=== PATIENT | female | born 1935 | race Caucasian/White ===

== ENCOUNTER 2019-07-17 13:15 | Inpatient (IN) | payer MEDICARE, OTHER ==
[2019-07-17] MEDS ORDERED: HYDROcodone/Acetaminophen 5/325 mg Tablet PO PRN (13:18)
[2019-07-17] MEDS ORDERED: Ondansetron PF 4 MG/2 ML Vial IVP PRN (13:18)
[2019-07-17] MEDS ORDERED: hydrALAZINE 20 MG/ML VIAL ONE (13:28)
[2019-07-17] MEDS ORDERED: Labetalol HCl 100 MG/20 ML VIAL SLOW IVP PRN (13:30)
[2019-07-17] MEDS ORDERED: HYDROcodone/Acetaminophen 7.5/325 mg Tablet PO PRN (13:33)
[2019-07-17] MEDS: hydrALAZINE 20 MG/ML VIAL SLOW IVP PRN ×2 (13:50→16:47)
[2019-07-17] MEDS: Sodium Chloride 0.9% 1,000 ML IV SCH (14:15)
[2019-07-17] MEDS: Acetaminophen 325 MG TAB PO PRN ×2 (14:18→20:28)
[2019-07-17 16:50] VITALS: BP 152/67
[2019-07-17] MEDS ORDERED: Sodium Chloride 0.9% (PF) 10 ML VIAL FS PRN (18:52)
[2019-07-17] MEDS ORDERED: Pantoprazole 40 MG VIAL IVP SCH (19:00)
[2019-07-17] MEDS ORDERED: Dextrose 50% Abboject 50 ML SYRINGE IVP PRN (20:14)
[2019-07-17] MEDS ORDERED: Dextrose 5% in Water 1,000 ML IV PRN (20:14)
[2019-07-17] MEDS: HumaLOG 300 UNITS/3 ML VIAL SC PRN (20:31)
--- NOTE | 2019-07-17 21:43 | HP ---
CHIEF COMPLAINT: Closed head injury, left frontal hematoma. HISTORY OF PRESENT ILLNESS: Ms. Dunne is a pleasant 84-year-old female, who was transferred from [facility] ER for left parietal intraparenchymal hemorrhage and right occipital intraparenchymal hemorrhage. The patient states that last night while she was in bed, she dropped something onto the ground and when she leaned over to pick it up, she hit the left side of her forehead on her bedside table. She did not initially present for medical evaluation; however, she decided to go to the ER today due to her son's concern for development of left frontal hematoma. The patient does report mild headache, but otherwise, denies any current complaints. She denies any confusion, vision changes, nausea, vomiting, shortness of breath, or chest pain. She was transferred to [facility] in [place] for higher level of care and CCU neurologic monitoring. Of note, her blood pressure is elevated, and she reports hypertension at baseline, for which, she regularly takes antihypertensive medication. She is unable to state exactly what medication she is on, however, her son has a list that he can provide. The patient is on 81 mg of aspirin as well as Plavix since she had cardiac stents placed earlier this year. PHYSICAL EXAMINATION: GENERAL: The patient is awake, alert, and appropriate. She is alert and oriented x3. NEURO: She is able to state her full name, the correct date, and states that she is currently in a hospital in [place], [place]. GCS is 15. Cranial nerves 2 through 12 are intact. Pupils are equal, round, and reactive to light. Extraocular movements are intact. Note that, the patient does have a large left frontal hematoma as well as periorbital edema that partially occludes her visual lam. No tongue fasciculation. No pronator drift. The patient has excellent strength throughout her upper and lower extremity myotomes bilaterally. Sensation to light touch is intact and equal bilaterally. Gait was not assessed. IMPRESSION/DIAGNOSES: 1. Multiple intracranial hemorrhages, including left parietal intraparenchymal hemorrhage and right occipital intraparenchymal hemorrhage. 2. History of hypertension, currently with elevated blood pressure. 3. History of coronary artery disease with stent placement, on 81 mg of aspirin and 75 mg of Plavix. PLAN: At this time, I have reviewed patient's case and imaging with Dr. Adams. No emergent neurosurgical intervention is necessary at this time. The patient's neurologic examination is very reassuring; however, the patient is admitted to critical care unit for hourly neuro checks. We will hold her aspirin and Plavix. Head of bed at 30 degrees. The patient is okay to have a clear liquid diet at this time. She will be on bed rest. Plan at this time is to repeat CT of the brain without contrast tomorrow morning. The patient's blood pressure at time of my initial evaluation was 225/85. I have ordered hydralazine and labetalol to be given as needed for systolic blood pressure greater than 140s with diastolic blood pressure greater than 90s. We will also order patient's home antihypertensives during her hospital stay. I consulted our medical colleagues for additional help with medical management and blood pressure control. We will see patient tomorrow morning for followup, or sooner if called regarding any neurologic changes. This was a 50- minute initial patient encounter, in which greater than 50% of the time was spent in counseling. The remaining time was spent in review of imaging, records, evaluation of the patient, examination, and formulation of a plan. Job ID: [id number]
--- NOTE | 2019-07-17 23:30 | PDOC.HHP ---
Hospitalist HPI - History of Present Illness History of Present Illness: Consultation: Medical management Referral source: Dr. Adams, neurosurgery team Ms. Dunne is an 84 y/o lady with PMH of parkinson's disease, HTN, who was transfered from [facility] in [place] after CT finding of left parietal hemorrhage and right occipital hemorrhage. Majority of the history obtained form the chart, as patient was asleep during consultation. Apparently, she had a fall out of her bed and hit her head on a bedside table and devleoped a frontal hematoma. The son was concerned because she is on blood thinners and took her to the emergency department. Medicine has been consutled by neurosurgical team for further management. Apparently, she is on Plavix and Aspirin for a stent which she had placed earlier this year. The vessel and exact date is unknown. She has history of parkinson's disease and is on levodopa therpay. She has history of diabetes and is insulin dependent. Hospitalist ROS - Review of Systems Constitutional: denies: fever, chills, sweats, weakness, malaise, other Eyes: denies: pain, vision change, conjunctivae inflammation, eyelid inflammation, redness, other ENT: denies: ear pain, ear discharge, nose pain, nose discharge, nose congestion , mouth pain, mouth swelling, throat pain, throat swelling, other Respiratory: denies: cough, dry, shortness of breath, hemoptysis, SOB with excertion, pleuritic pain, sputum, wheezing, other Cardiovascular: denies: chest pain, palpitations, orthopnea, paroxysmal noc. dyspnea, edema, light headedness, other Gastrointestinal: denies: nausea, vomiting, abdominal pain, diarrhea, constipation, melena, hematochezia, other Genitourinary: denies: dysuria, frequency, incontinence, hematuria, retention, other Musculoskeletal: denies: neck pain, shoulder pain, arm pain, back pain, hand pain, leg pain, foot pain, other Skin: denies: rash, lesions, susie, bruising, other Neurological: denies: weakness, numbness, incoordination, change in speech, confusion, seizures, other - Medication Medications: Active Medications Generic Name Dose Route Start Last Admin Trade Name Freq PRN Reason Stop Dose Admin Acetaminophen 650 mg 07/17/19 13:18 07/17/19 20:28 Tylenol PO 650 mg Q4H PRN Administration Headache/Fever/Mild Pain (1-3) Hydralazine HCl 10 mg 07/17/19 13:29 07/17/19 16:47 Apresoline SLOW IVP 10 mg Q15MIN PRN Administration SBP greater than 140 Sodium Chloride 1,000 mls @ 75 mls/hr 07/17/19 13:30 07/17/19 14:15 Normal Saline 0.9% IV 1,000 mls .[id number] MONSE Administration Insulin Human Lispro 0 units 07/17/19 20:14 07/17/19 20:31 Humalog SC 5 unit .MILD SLIDING SCALE PRN Administration MILD SLIDING SCALE Protocol Medication Instructions Recorded Confirmed Type Aspirin [Aspir-Low] 81 mg PO DAILY 07/17/19 07/17/19 History Rick/D3/Mag11/Zinc/School [employer]eter[employer] Cook/Samuel/Bor 1 tablet PO BID- 07/17/19 07/17/19 History [Caltrate 600 D Plus Minerals] Carbidopa/Levodopa 1 tab PO QID 07/17/19 07/17/19 History [Carbidopa-Levodopa 25-100 Tab] Carvedilol [Coreg] 3.125 mg PO BID 07/17/19 07/17/19 History Cholecalciferol (Vitamin D3) 5,000 unit PO DAILY 07/17/19 07/17/19 History [Vitamin D3] Clopidogrel Bisulfate [Plavix] 75 mg PO DAILY 07/17/19 07/17/19 History Fenofibrate Nanocrystallized 145 mg PO HS 07/17/19 07/17/19 History [Tricor] Icosapent Ethyl [Vascepa] 2 gm PO BID-WM 07/17/19 07/17/19 History Insulin Lispro Protamin/Lispro 0 unit SC BID-AC 07/17/19 07/17/19 History [HumaLOG Mix 75/25 KwikPen] Levothyroxine Sodium [Synthroid] 75 mcg PO DAILY 07/17/19 07/17/19 History Memantine HCl [Namenda] 10 mg PO BID 07/17/19 07/17/19 History Multivitamin/Iron/Folic Acid 1 each PO DAILY 07/17/19 07/17/19 History [Centrum Adults Tablet] Omeprazole 40 mg PO MWF 07/17/19 07/17/19 History Polyethylene Glycol 3350 [Miralax] 17 gm PO DAILY 07/17/19 07/17/19 History Rosuvastatin [Crestor] 5 mg PO HS 07/17/19 07/17/19 History rOPINIRole HCl [Ropinirole HCl] 1 mg PO HS 07/17/19 07/17/19 History Hospitalist History - Past Medical History Cardiac: reports: CAD Pulmonary: reports: no pertinent history TRAIN CALLER: reports: Other (Parkinson's) Gastrointestinal: reports: no pertinent history Heme/Onc: reports: no pertinent history Hepatobiliary: reports: no pertinent history Psych: reports: no pertinent history Musculoskeletal: reports: no pertinent history Rheumatologic: reports: no pertinent history Infectious Disease: reports: no pertinent history ENT: reports: no pertinent history Renal/: reports: no pertinent history Endocrine: reports: Diabetes Dermatology: reports: no pertinent history - Past Surgical History Past Surgical History: reports: no pertinent history - Family History Family History: reports: no pertinent history - Social History Alcohol: reports: None Drugs: reports: none Living Situation: With Family - Exam General Appearance: NAD, awake alert Eye: PERRL, anicteric sclera ENT: no oropharyngeal lesions, moist mucosa ENT - other findings: left frontal hematoma noted Neck: supple, symmetric, no JVD, no thyromegaly, no lymphadenopathy, no carotid bruit Heart: RRR, no murmur, no gallops, no rubs, normal peripheral pulses Respiratory: CTAB, no wheezes, no rales, no ronchi, normal chest expansion, no tachypnea, normal percussion Gastrointestinal: soft, non-tender, non-distended, normal bowel sounds, no palpable masses, no hepatomegaly, no splenomegaly, no bruit Extremities: no cyanosis, no clubbing, no edema Skin: normal turgor, no lesions, no rashes Neurological: cranial nerve grossly intact, normal sensation to touch, no weakness, no focal deficits, no new deficit Musculoskeletal: normal tone, normal strength, no muscle wasting Psychiatric: normal affect, normal behavior, A&O x 3 Hospitalist Results - Labs Additional comment: Labs reviewed in the chart, WBC count of 9.1, RBC 4.21, HGB 12.0, HCT 37.2, Platelet 304 CT brain reviewed in the chart, IMPRESSION: left temporal lobe and small amount of intraventricular hemorrhage - Radiology Interpretation CT scan - head Status: report reviewed by me Hospitalist H&P A/P - Problem (1) Intraparenchymal hematoma of brain Code(s): S06.360A - TRAUM HEMOR CEREB, W/O LOSS OF CONSCIOUSNESS, INIT Status : Acute (2) Parkinsons disease Code(s): G20 - PARKINSON'S DISEASE Status: Acute (3) Coronary artery disease Code(s): I25.10 - ATHSCL HEART DISEASE OF [place] CORONARY ARTERY W/O ANG PCTRS Status: Acute (4) Hypothyroidism Code(s): E03.9 - HYPOTHYROIDISM, UNSPECIFIED Status: Acute (5) Hypertension Code(s): I10 - ESSENTIAL (PRIMARY) HYPERTENSION Status: Acute (6) Type 2 diabetes mellitus Status: Acute - Plan Plan: Medication reconciled, continue parkinson medication and anti-hypertensive medication. Goal BP around 140mmHg systolic for ICH. Resume sliding scale for diabetes management at this time Hold plavix and aspirin, will need outside records or contact mineral technologist date of stent and follow up moving forwards Resume medication for hypothyroidism Thank you for this consultation. We will continue to follow along with you. Will follow diabetes and blood sugar while in the hospital.
[2019-07-18] MEDS: Sodium Chloride 0.9% 1,000 ML IV SCH ×2 (02:38→17:18)
[2019-07-18 05:40] LABS: #Basophils 0.2 thou/uL (0.0-0.2); #Eosinphils 0.3 thou/uL (0.0-0.7); #Lymphocytes 3.2 thou/uL (1.20-3.40); #Monocytes 0.9 thou/uL (0.11-0.59); #Neutrophils 3.6 thou/uL (1.40-6.50); %Basophils 2.4 % (0.0-1.0); %Eosinophils 3.3 % (0.0-10.0); %Lymphocytes 39.2 % (21.0-51.0); %Monocytes 10.9 % (0.0-10.0); %Neutrophils 44.2 % (42.0-75.0); Hemoglobin 11.2 g/dL (12.0-16.0); Mean Corpuscular HGB CONC 32.9 g/dL (32.0-36.0); Mean Corpuscular Hemoglobin 28.8 pg (27.0-31.0); Mean Corpuscular Volume 87.6 fL (78.0-98.0); Mean Platelet Volume 7.7 fL (7.4-10.4); Platelet Count 268 thou/uL (130-400); RBC Distribution Width 12.2 % (11.5-14.5); Red Blood Cell (RBC) Count 3.88 mill/uL (4.20-5.40); White Blood Cell (WBC) Count 8.1 thou/uL (4.8-10.8)
[2019-07-18 06:05] LABS: Anion Gap 12 mmol/L (10-20); BUN (Urea Nitrogen) 15 mg/dL (9.8-20.1); Calc. Creatinine Clearance 33 mL/min (70-130); Calcium 9.2 mg/dL (7.8-10.44); Carbon Dioxide 26 mmol/L (23-31); Chloride 108 mmol/L (98-107); Estimated GFR-MDRD 58; Glucose 152 mg/dL (83-110); Sodium 142 mmol/L (136-145)
[2019-07-18] MEDS: HumaLOG 300 UNITS/3 ML VIAL SC PRN ×3 (06:28→20:46)
[2019-07-18] MEDS: Levothyroxine Sodium 75 MCG TAB PO SCH (06:28)
[2019-07-18] MEDS: hydrALAZINE 20 MG/ML VIAL SLOW IVP PRN ×2 (06:32→13:38)
--- NOTE | 2019-07-18 07:39 | CT ---
PRELIMINARY REPORT/[facility]/EMERGENCY AFTER HOURS PROCEDURE Receipt of this report by the clinical staff was confirmed with Ana Laura Brewer RN by Anish Tyler on Jul 18, 2019 06:31:00 PALLIATIVE CARE NURSE. Addendum electronically signed by Fern Tyler on July 18, 2019 6:32:09 AM PALLIATIVE CARE NURSE EXAM: CT Head Without Intravenous Contrast. CLINICAL HISTORY: PREVIOUS IMAGES SENT FROM [facility]. F/U BLEED FROM RECENT FALL TECHNIQUE: Axial computed tomography images of the head/brain without intravenous contrast. COMPARISON: CT\SR - CT-HEAD WO CONTRAST - 07/17/2019 10:27 AM PALLIATIVE CARE NURSE FINDINGS: BRAIN: A hyperdense well-circumscribed 11 x 23 mm oval area of acute bleed with the millimeter or so border of edema is present in the left medial temporal lobe as seen on yesterday's exam, slightly effacing t he ipsilateral cistern No herniation In the right occipital cortex near the midline is a similar, to perhaps slightly less dense 12 x 16 m m area of hemorrhage adjacent to the calvarium and falx, similarly not causing significant mass effec t. Subsequently obtained coronal reformats clearly show this as not of a different age, but is different density is because it is a gyriform enhancement indicating an acute cortical hemorrhage, the effect of different density was volume averaging on the axials. This shows the need for multiaxial reformats in any acute brain scan. There is a punctate paramedian right frontal 4 mm area of subcortical acute hemorrhage Forhead hematoma present VENTRICLES: There is a tiny level of acute blood in the left posterior, lateral ventricle as seen yesterday Generalized symmetrical lateral ventriculomegaly. ORBITS: The orbits are unremarkable. SINUSES AND MASTOIDS: The paranasal sinuses and mastoid air cells are clear. SOFT TISSUES: No significant facial or scalp soft tissue swelling evident. No radiopaque foreign body is seen. BONES: No fracture MISCELLANEOUS: There is considerable delay in the report; we multiply requested coronal and sagittal reformats given the acute bleed, and have requested prior study which is apparently unavailable; Subsequently I have discussed the case with Nidhi about 30 minutes prior to final dictation; she s tates the patient does not have acute neurologic symptoms but does have Parkinson's; she has obtained a report which we will eventually acquire but apparently mentions only a solitary bleed on the left medial temporal lobe with a bit of intraventricular blood. IMPRESSION: 1. There are interval punctate subcortical scattered hemorrhages in this patient which we admittedly see only on reformats which we have subsequently requested. These may have developed in the interval, but as discussed above these most interval finding since yesterday are only really apparent on the r eformats. 2. Further neurologic and medical consultation is recommended. Report was prioritized for final dicta tion 6:14 AM PALLIATIVE CARE NURSE ELECTRONICALLY SIGNED BY: Gurjit Hooks M.D. Jul 18, 2019 6:14:51 AM PALLIATIVE CARE NURSE FINAL REPORT EMERGENT AFTER HOURS CT OF THE BRAIN WITHOUT CONTRAST: FINDINGS/IMPRESSION: I agree with the findings and impression given in the preliminary report per [facility] physici an. There is a stable hemorrhage in the left medial temporal lobe. The punctate hyperdensities ment ioned in the preliminary report are likely artifactual.
[2019-07-18] MEDS: Carvedilol 3.125 MG TAB PO SCH ×2 (08:19→20:40)
[2019-07-18] MEDS: Carbidopa/Levodopa 25-100 mg Tablet PO SCH ×4 (08:19→20:40)
[2019-07-18] MEDS: Pantoprazole 40 MG VIAL IVP SCH (08:20)
[2019-07-18] MEDS: Polyethylene Glycol 3350 17 GM Packet PO SCH (08:20)
--- NOTE | 2019-07-18 10:00 | CON ---
DATE OF CONSULTATION: 07/18/2019 This encompassed 50 minutes time, of that time, greater than 50% spent with the patient and/or the patient's unit in the hospital. REASON FOR CONSULTATION: ICU management. HISTORY OF PRESENT ILLNESS: This is an 84-year-old female, who presented to the [facility] Emergency Room yesterday after falling. She sustained a bruise to the left parietotemporal region. She has a deep intracranial hemorrhage. So far, she has had no sequela from that and she is being watched closely in the CCU. PAST MEDICAL HISTORY: 1. Cyr palsy. 2. Diabetes mellitus. 3. Coronary artery disease. 4. Hypertension. 5. Nephrolithiasis. 6. Myocardial infarction. 7. Parkinson disease. PAST SURGICAL HISTORY: 1. Hysterectomy. 2. Tonsillectomy. 3. Appendectomy. 4. Cardiac catheterization. 5. Bladder suspension. 6. Cataract surgery. 7. Right colon resection. MEDICATIONS: Prior to admission; 1. Aspirin 81 mg daily. 2. Carbidopa/levodopa 25/100 daily. 3. Crestor 5 mg daily. 4. Carvedilol 3.125 mg b.i.d. 5. Synthroid 75 mcg daily. 6. Humalog insulin. 7. Memantine 10 mg daily. 8. Plavix 75 mg daily. 9. Tricor 145 mg daily. 10. Vascepa 1 g daily. ALLERGIES: NONE. SOCIAL HISTORY: Never smoked. Does not consume alcohol. IMMUNIZATION STATUS: Not known. REVIEW OF SYSTEMS: Twelve-point review of systems is otherwise negative. PHYSICAL EXAMINATION: VITAL SIGNS: Temperature 98.5, pulse 67, blood pressure 130/41, and O2 saturation 99%. GENERAL: She is awake, alert, in no distress. HEENT: Remarkable for a quarter-sized bruise in the frontal region of her head. Pupils are reactive. Sclerae are anicteric. Tongue protrudes midline. NECK: No adenopathy or JVD. CARDIAC: S1 and S2, regular. There is 3/6 holosystolic harsh murmur. LUNGS: Clear. ABDOMEN: Soft and nontender. EXTREMITIES: No clubbing, cyanosis, or edema. NEUROLOGIC: She has a resting parkinsonian tremor. LABORATORY DATA: Sodium 142, potassium 4, chloride 108, CO2 of 26, BUN 15, creatinine 0.9, glucose 152. White blood cell count 8.1, hematocrit 34.0, and platelet count 268. Head CT was reviewed. ASSESSMENT: 1. Status post brain hemorrhage - traumatic. 2. Parkinson disease. 3. Diabetes mellitus. 4. History of coronary artery disease. 5. Harsh systolic heart murmur. PLAN: 1. Check echocardiogram to rule out critical aortic stenosis, especially given recent fall. 2. Medical problems being managed by the hospitalist group. 3. Transfer to floor when okay with Neurosurgery. Job ID: [id number]
--- NOTE | 2019-07-18 12:35 | PRG ---
DATE OF SERVICE: 07/18/2019 A 30-minute initial visit note, in which 30 minutes were spent reviewing the imaging record, evaluation, examination of the patient, and formulation of plan. Greater than 50% time was spent in counseling on Dariana Dunne. Ms. Dunne is an 84-year-old woman. She fell and sustained a coup and contrecoup injury including a frontal pole contusion, left temporal medial contusion, and a right occipital contusion. Head CT this morning is stable. She is neurologically intact and appears to be doing quite well. Our medical colleagues are working up syncopal spells. I am going to sign off. She can be transferred to the floor whenever deemed appropriate by our medical team. I will repeat a head CT in 1 month. She should be off antiplatelet and anticoagulant medication during that time. DIAGNOSIS: Cerebral contusion. Job ID: [id number]
--- NOTE | 2019-07-18 15:57 | PDOC.HOSPP ---
- Subjective Encounter Date: 07/18/19 Encounter Time: 11:54 Subjective: 84 y/o female with CAD on ASA and plavix, HTN, parkinson, DM and prior right sided bells palsy admitted for treatment of bilateral intracranial bleed after accidentaly hitting her head onto a lamp stand during a fall. feeling normal. No headache on new deficit. - Objective Vital Signs & Weight: Vital Signs (12 hours) Temp Pulse BP 07/18/19 13:38 79 152/67 H 07/18/19 08:00 98.1 F 07/18/19 06:32 79 152/67 H 07/18/19 04:00 98.5 F Weight Weight 102 lb 8.239 oz Most Recent Monitor Data Heart Rate from ECG 67 NIBP 135/55 NIBP BP-Mean 81 Respiration from ECG 15 SpO2 98 I&O: 07/17/19 07/18/19 07/19/19 06:59 06:59 06:59 Intake Total 1923 Output Total 1725 Balance 198 Result Diagrams: 07/18/19 05:33 07/18/19 05:33 Additional Labs: Accuchecks 07/18/19 07/17/19 10:54 20:34 POC Glucose 320 H 323 H Hospitalist ROS - Medication Medications: Active Medications Generic Name Dose Route Start Last Admin Trade Name Freq PRN Reason Stop Dose Admin Acetaminophen 650 mg 07/17/19 13:18 07/17/19 20:28 Tylenol PO 650 mg Q4H PRN Administration Headache/Fever/Mild Pain (1-3) Carbidopa/Levodopa 1 tab 07/18/19 09:00 07/18/19 13:38 Sinemet 25-100 PO 1 tab QID MONSE Administration Carvedilol 3.125 mg 07/18/19 09:00 07/18/19 08:19 Coreg PO 3.125 mg BID MONSE Administration Hydralazine HCl 10 mg 07/17/19 13:29 07/18/19 13:38 Apresoline SLOW IVP 10 mg Q15MIN PRN Administration SBP greater than 140 Sodium Chloride 1,000 mls @ 75 mls/hr 07/17/19 13:30 07/18/19 02:38 Normal Saline 0.9% IV 1,000 mls .[id number] MONSE Administration Insulin Human Lispro 0 units 07/17/19 20:14 07/18/19 11:04 Humalog SC 5 unit .MILD SLIDING SCALE PRN Administration MILD SLIDING SCALE Protocol Levothyroxine Sodium 75 mcg 07/18/19 06:00 07/18/19 06:28 Synthroid PO 75 mcg 0600 MONSE Administration Memantine 10 mg 07/18/19 09:00 07/18/19 08:19 Namenda PO 10 mg BID MONSE Administration Pantoprazole Sodium 40 mg 07/18/19 09:00 07/18/19 08:20 Protonix IVP 40 mg DAILY MONSE Administration Polyethylene Glycol 17 gm 07/18/19 09:00 07/18/19 08:20 Miralax PO Not Given DAILY MONSE - Exam General Appearance: awake alert Eye: anicteric sclera ENT - other findings: normocephalic. left frontal resolving hematoma noted. mild R facial droop Neck: symmetric, no JVD Heart: murmur present Respiratory: no wheezes, no ronchi, normal chest expansion, no tachypnea Gastrointestinal: soft, non-tender, non-distended, normal bowel sounds Extremities: no cyanosis, no edema Neurological: no new deficit Psychiatric: A&O x 3 Hosp A/P (1) Coronary artery disease Code(s): I25.10 - ATHSCL HEART DISEASE OF [place] CORONARY ARTERY W/O ANG PCTRS Status: Acute (2) Hypertension Code(s): I10 - ESSENTIAL (PRIMARY) HYPERTENSION Status: Acute (3) Hypothyroidism Code(s): E03.9 - HYPOTHYROIDISM, UNSPECIFIED Status: Acute (4) Intraparenchymal hematoma of brain Code(s): S06.360A - TRAUM HEMOR CEREB, W/O LOSS OF CONSCIOUSNESS, INIT Status : Acute (5) Parkinsons disease Code(s): G20 - PARKINSON'S DISEASE Status: Acute (6) Type 2 diabetes mellitus Status: Acute (7) Heart murmur Code(s): R01.1 - CARDIAC MURMUR, UNSPECIFIED Status: Acute - Plan Alexys nue neurochecks Follow Echo Continue glucemic management. Continue current antihypertensives Off antiplatelets
[2019-07-18] MEDS ORDERED: rOPINIRole HCl 1 MG TAB PO SCH (21:00)
[2019-07-18] MEDS ORDERED: Rosuvastatin 5 MG TAB PO SCH (21:00)
[2019-07-19] MEDS: HumaLOG 300 UNITS/3 ML VIAL SC PRN (05:54)
[2019-07-19] MEDS: Levothyroxine Sodium 75 MCG TAB PO SCH (05:54)
[2019-07-19 07:11] VITALS: TEMP 97.8
[2019-07-19] MEDS: Carbidopa/Levodopa 25-100 mg Tablet PO SCH ×2 (07:51→12:24)
[2019-07-19] MEDS: Carvedilol 3.125 MG TAB PO SCH (07:51)
[2019-07-19] MEDS: Polyethylene Glycol 3350 17 GM Packet PO SCH (07:51)
[2019-07-19] MEDS: Pantoprazole 40 MG VIAL IVP SCH (07:52)
--- NOTE | 2019-07-19 08:06 | PRG ---
DATE OF SERVICE: 07/19/2019 SUBJECTIVE: The patient is doing reasonably well. She has had no adverse events overnight. She has no complaints at the current time. Her echo showed mild aortic stenosis. OBJECTIVE: VITAL SIGNS: Temperature 97.8, pulse 82, blood pressure 176/80, O2 saturation 96%. HEENT: Remarkable for a small bruise over the left frontotemporal area. NECK: No JVD. CHEST: Clear. CARDIAC: S1, S2. Regular. ABDOMEN: Soft and nontender. EXTREMITIES: She has a parkinsonian tremor. LABORATORY DATA: No new labs were obtained today. ASSESSMENT: 1. Status post traumatic brain injury from a fall. 2. Mild aortic stenosis. 3. Parkinson disease. 4. Diabetes mellitus. PLAN: From my standpoint, she can be transferred out to the floor. She has no acute pulmonary concerns. At some point in the future, she may need to be evaluated by Cardiology as an outpatient for aortic stenosis. No further recommendations. I will sign off. Job ID: [id number]
--- NOTE | 2019-07-19 12:48 | PDOC.HOSPP ---
- Subjective Encounter Date: 07/19/19 Encounter Time: 12:47 Subjective: 84 y/o female with CAD on ASA and plavix, HTN, parkinson, DM and prior right sided bells palsy admitted for treatment of bilateral intracranial bleed/ contusion after accidentally hitting her head onto a lamp stand during a fall. No headache on new deficit. - Objective Vital Signs & Weight: Vital Signs (12 hours) Temp Pulse Ox 07/19/19 07:00 97.8 F 96 07/19/19 04:00 98.1 F Weight Weight 102 lb 8.239 oz Most Recent Monitor Data Heart Rate from ECG 84 NIBP 167/81 NIBP BP-Mean 109 Respiration from ECG 23 SpO2 97 I&O: 07/18/19 07/19/19 07/20/19 06:59 06:59 06:59 Intake Total 1923 1419 400 Output Total 1725 2000 350 Balance 198 -581 50 Result Diagrams: 07/18/19 05:33 07/18/19 05:33 Additional Labs: Accuchecks 07/19/19 07/18/19 07/18/19 05:57 20:48 16:26 POC Glucose 164 H 308 H 125 H Hospitalist ROS - Medication Medications: Active Medications Generic Name Dose Route Start Last Admin Trade Name Freq PRN Reason Stop Dose Admin Acetaminophen 650 mg 07/17/19 13:18 07/17/19 20:28 Tylenol PO 650 mg Q4H PRN Administration Headache/Fever/Mild Pain (1-3) Carbidopa/Levodopa 1 tab 07/18/19 09:00 07/19/19 12:24 Sinemet 25-100 PO 1 tab QID MONSE Administration Carvedilol 3.125 mg 07/18/19 09:00 07/19/19 07:51 Coreg PO 3.125 mg BID MONSE Administration Hydralazine HCl 10 mg 07/17/19 13:29 07/18/19 13:38 Apresoline SLOW IVP 10 mg Q15MIN PRN Administration SBP greater than 140 Insulin Human Lispro 0 units 07/18/19 16:03 07/19/19 05:54 Humalog SC 2 unit .MODERATE SLIDING SC PRN Administration Moderate Correctional Scale Levothyroxine Sodium 75 mcg 07/18/19 06:00 07/19/19 05:54 Synthroid PO 75 mcg 0600 MONSE Administration Memantine 10 mg 07/18/19 09:00 07/19/19 07:51 Namenda PO 10 mg BID MONSE Administration Polyethylene Glycol 17 gm 07/18/19 09:00 07/19/19 07:51 Miralax PO 17 gm DAILY MONSE Administration Ropinirole HCl 1 mg 07/18/19 21:00 07/18/19 21:30 Requip PO 1 mg HS MONSE Administration Rosuvastatin Calcium 5 mg 07/18/19 21:00 07/18/19 20:40 Crestor PO 5 mg HS MONSE Administration - Exam General Appearance: awake alert Eye: anicteric sclera ENT - other findings: Resolving left frontal and periorbital bruise/ecchymosis Neck: symmetric Heart: RRR, murmur present Respiratory: no wheezes, no rales, no ronchi, normal chest expansion Gastrointestinal: soft, non-tender, non-distended, normal bowel sounds Extremities: no cyanosis, no edema Neurological: no new deficit Psychiatric: A&O x 3 Hosp A/P (1) Intraparenchymal hematoma of brain Code(s): S06.360A - TRAUM HEMOR CEREB, W/O LOSS OF CONSCIOUSNESS, INIT Status : Acute (2) Coronary artery disease Code(s): I25.10 - ATHSCL HEART DISEASE OF [place] CORONARY ARTERY W/O ANG PCTRS Status: Acute (3) Hypertension Code(s): I10 - ESSENTIAL (PRIMARY) HYPERTENSION Status: Acute (4) Hypothyroidism Code(s): E03.9 - HYPOTHYROIDISM, UNSPECIFIED Status: Acute (5) Parkinsons disease Code(s): G20 - PARKINSON'S DISEASE Status: Acute (6) Type 2 diabetes mellitus Status: Acute (7) Heart murmur Code(s): R01.1 - CARDIAC MURMUR, UNSPECIFIED Status: Acute (8) Mitral regurgitation Status: Acute - Plan Can be discharged from Medical point of view. Review of home medications showed that patient is on coreg 12.5 bid at home but currently on 3.125 bid here. Will change to usual 12.5 bid at discharge. Off antiplatelets Follow with PCP in 7 days.
== END 2019-07-19 13:32 | disposition home or self-care (01) | DRG 87 ==
LOC: CCU 13:15
PROVIDERS: ADMIT Surgery; ATTEND Surgery
DX: S06.350A Traumatic hemorrhage of left cerebrum without loss of consciousness, initial encounter (principal); S06.300A Unspecified focal traumatic brain injury without loss of consciousness, initial encounter; I10 Essential (primary) hypertension; I25.10 Atherosclerotic heart disease of native coronary artery without angina pectoris; W06.XXXA Fall from bed, initial encounter; G20 Parkinson's disease; E11.9 Type 2 diabetes mellitus without complications; E03.9 Hypothyroidism, unspecified; I35.0 Nonrheumatic aortic (valve) stenosis; Z79.82 Long term (current) use of aspirin; Z79.4 Long term (current) use of insulin; I25.2 Old myocardial infarction; Z90.710 Acquired absence of both cervix and uterus; Z90.49 Acquired absence of other specified parts of digestive tract; Z98.49 Cataract extraction status, unspecified eye
CPT/HCPCS: 36415; 36416; 70450; 80048; 85025; 93306; C9113; J0360

== ENCOUNTER 2020-08-09 23:36 | Inpatient (IN) | payer MEDICARE, OTHER ==
[2020-08-10] MEDS ORDERED: Ondansetron ODT 4 MG TAB PO PRN (02:08)
[2020-08-10] MEDS ORDERED: hydrALAZINE 20 MG/ML VIAL SLOW IVP PRN (02:08)
[2020-08-10] MEDS ORDERED: Lorazepam 2 MG/ML VIAL SLOW IVP PRN (02:08)
[2020-08-10] MEDS ORDERED: Ondansetron PF 4 MG/2 ML Vial IVP PRN (02:08)
[2020-08-10] MEDS ORDERED: Insulin Regular 300 UNITS/3 ML VIAL SC PRN (02:08)
[2020-08-10] MEDS ORDERED: Dextrose 5% in Water 1,000 ML IV PRN (02:08)
[2020-08-10] MEDS ORDERED: Acetaminophen/Codeine 30-300mg Tablet PO PRN (02:08)
[2020-08-10] MEDS ORDERED: Sodium Chloride 0.9% 1,000 ML IV SCH (02:08)
[2020-08-10] MEDS ORDERED: Dextrose 50% Abboject 50 ML SYRINGE SLOW IVP PRN (02:08)
[2020-08-10 02:44] VITALS: BMI 19.8
--- NOTE | 2020-08-10 05:49 | HP ---
REQUESTING PHYSICIAN: Dr. Collins. ATTENDING SURGEON: Dr. Calloway. CONSULTATIONS: Orthopedics, Dr. Quigley. HISTORY OF PRESENT ILLNESS: The patient is a transfer from [facility]. She reportedly was brought there by ground EMS after reportedly having a fall at home. She was found down after having unwitnessed fall. She was brought to the emergency room there, underwent evaluation and examination and was noted to have a left hip fracture. While undergoing her exam, it was also noted that she started having seizures. She was loaded with Keppra and her seizures were stopped with Ativan. By report, it appears the patient got 8 mg of Ativan. She was subsequently transferred to our facility. The emergency room physician there spoke with Dr. Calloway, who advised them to send her to our facility for admission. The family did not accompany the patient to our facility, but did confirm while at [facility] that she was DNR. They report that she has dementia and she is normally at baseline of A and O x2. The patient had a scalp laceration repaired in the emergency department in [place] also. ALLERGIES: NONE. CURRENT MEDICATIONS: 1. Carbidopa/levodopa. 2. Levothyroxine. 3. Omeprazole. 4. Multivitamins. 5. Coreg. 6. Memantine. 7. Vascepa. 8. Crestor. 9. Ropinirole. 10. Tricor. 11. Humalog. 12. MiraLAX. 13. Sublingual nitroglycerin. REVIEW OF SYSTEMS: 10-point review of systems is negative except otherwise stated. PHYSICAL EXAMINATION: VITAL SIGNS: Blood pressure 179/80, heart rate 74, respirations 19, oxygen saturation 97% on room air, and temperature is 98.0. GENERAL: The patient is resting comfortably in bed. She is still sedated from her Keppra and Ativan. She does appear comfortable. Her respirations are nonlabored. She did attempt to open her eyes with loud verbal stimuli and some gentle painful stimuli. Her L[place] Coma Scale will be 8, it would be E2, V1, M5. HEENT: Head is normocephalic, approximately 2.5 cm laceration repaired with interrupted sutures on the left side of her scalp. Ears are atraumatic without discharge. Nose is atraumatic without discharge. Oropharynx is clear. NECK: Nontender. Trachea is midline with no JVD. The patient's C-collar has been cleared by the emergency room physician. CHEST: Clear to auscultation with moderate inspiratory and expiratory effort. HEART: Regular rate and rhythm. ABDOMEN: Soft, flat, nontender with active bowel sounds. EXTREMITIES: Neurovascularly intact x4. The patient does have her left hip slightly flexed and internally rotated. BACK: By report is atraumatic and nontender. LABORATORY FINDINGS: White blood cell count 10.1, hemoglobin 12.2, hematocrit 38.1, platelets 259. Sodium 138, potassium 4.1, chloride 100, CO2 of 28, BUN 35, creatinine 1.30, glucose 177. LFTs are unremarkable. CK 275, troponin 0.13. BNP 37.6. INR 1.1. Urinalysis shows trace protein, trace glucose, positive for blood, positive for leukocyte esterase, 1+ bacteria. Influenza A and B are negative. COVID is negative. RADIOGRAPHIC REPORTS: CT of the brain without contrast shows no acute intracranial abnormalities. CT of the C-spine without contrast shows no CT evidence of fracture of the cervical spine. AP chest x-ray shows a chronic appearing lung changes. AP pelvis x-ray shows intertrochanteric fracture of the left hip. Views of the left hip again demonstrate the intertrochanteric proximal femur fracture on the left. ASSESSMENT: 1. Status post unwitnessed fall. 2. Altered mental status with negative head CT. 3. History of recurrent falls. 4. Postconcussive seizures, treated with Ativan and Keppra. 5. Left intertrochanteric femur fracture. 6. Scalp laceration, repaired in [place] [facility]. PLAN: Plan will be to keep the patient n.p.o. We will do pain control, pulmonary toilet, gastritis and mechanical VTE prophylaxis. The patient will have Keppra b.i.d. We will do nonsedating medications, allow the patient to wake up to assess her neuro exam. The patient will be placed on a monitored floor, specifically stroke as a part of her seizure precautions. Tomorrow, she will undergo evaluation by Orthopedics and determine if she needs surgery. We will work with physical and occupational therapy and Case Management for placement. Also ask Palliative Care to join us on this case to discuss long-term prognosis and care of this patient as it appears her falls have become more frequent. The evaluation, examination, laboratory, and radiographic findings were discussed with Dr. Calloway by the sending facility and I will discuss it with him after this dictation. Dr. Quigley has been notified of her fracture also. Job ID: [id number]
[2020-08-10 05:54] LABS: #Lymphocytes 1.9 thou/uL (1.20-3.40); #Monocytes 1.1 thou/uL (0.11-0.59); #Neutrophils 10.2 thou/uL (1.40-6.50); %Basophils 0.3 % (0.0-1.0); %Eosinophils 0.2 % (0.0-10.0); %Lymphocytes 14.2 % (21.0-51.0); %Monocytes 8.1 % (0.0-10.0); %Neutrophils 77.2 % (42.0-75.0); Hemoglobin 10.2 g/dL (12.0-16.0); Mean Corpuscular HGB CONC 32.3 g/dL (32.0-36.0); Mean Corpuscular Hemoglobin 29.1 pg (27.0-31.0); Mean Platelet Volume 8.6 fL (7.4-10.4); Platelet Count 195 thou/uL (130-400); RBC Distribution Width 12.1 % (11.5-14.5); Red Blood Cell (RBC) Count 3.51 mill/uL (4.20-5.40); White Blood Cell (WBC) Count 13.2 thou/uL (4.8-10.8)
[2020-08-10] MEDS: Acetaminophen 325 MG TAB PO SCH ×4 (06:13→23:34)
[2020-08-10 06:17] LABS: Anion Gap 13 mmol/L (10-20); BUN (Urea Nitrogen) 28 mg/dL (9.8-20.1); Calc. Creatinine Clearance 28 mL/min (70-130); Calcium 8.7 mg/dL (7.8-10.44); Carbon Dioxide 23 mmol/L (23-31); Chloride 105 mmol/L (98-107); Glucose 165 mg/dL (83-110); Magnesium 1.5 mg/dL (1.6-2.6); Phosphorus 2.7 mg/dL (2.3-4.7); Potassium 4.2 mmol/L (3.5-5.1); Sodium 137 mmol/L (136-145)
[2020-08-10] MEDS ORDERED: Ondansetron PF 4 MG/2 ML Vial ONE (08:52)
[2020-08-10] MEDS ORDERED: PROPOFOL 200 MG/20 ML VIAL ONE (08:52)
[2020-08-10] MEDS ORDERED: PHENYLEPHRINE-NS 100 MCG/ML 10 ML SYRINGE ONE (08:52)
[2020-08-10] MEDS ORDERED: ePHEDrine 50 MG/ML VIAL ONE (08:52)
[2020-08-10] MEDS: Famotidine 20 MG TAB PO SCH (08:52)
[2020-08-10] MEDS ORDERED: Lidocaine 1% PF 5 ML VIAL ONE (08:52)
[2020-08-10] MEDS ORDERED: Rocuronium Bromide 10 MG/ML (10ML VIAL) ONE (08:52)
[2020-08-10] MEDS ORDERED: Dexamethasone 20 MG/5 ML VIAL ONE (08:52)
[2020-08-10] MEDS ORDERED: Glycopyrrolate 0.2 MG/ML 5 ML SYRINGE ONE (08:52)
[2020-08-10] MEDS ORDERED: cefTRIAXone\\ROCEPHIN 1 GM in Sodium Chloride 0.9% 100 ML IVPB SCH (09:00)
[2020-08-10] MEDS ORDERED: levETIRAcetam in NS 500 MG in Premix Bag 1 BAG IVPB SCH (09:00)
[2020-08-10] MEDS: Carbidopa/Levodopa 25-100 mg Tablet PO SCH ×3 (09:40→17:55)
[2020-08-10] MEDS ORDERED: Magnesium 2 GM/50 ML 2 GM in Premix Bag 1 BAG IVPB SCH ×2 (10:00→10:45)
--- NOTE | 2020-08-10 10:17 | PDOC.PALCO ---
Palliative Care Consult - Consult Details Requesting Physician: Nacho Mckeon PA-C Reason for Consult: goals of care, assistance with communication prognosis/disease, family support Family Members Present: SonMarcia Seymour - Pertinent HPI 85 yo female admitted for unwitnessed fall at home with intertrochanteric fracture and witnessed seizure in ED. Was sedated in ED with Ativan and loaded with Keppra. Also, had scalp laceration repaired in ED. Currently she remains sedated-- can open her eyes to stimulation and obey commands, nonverbal. Son is at bedside- Her baseline is she lives in his home, is WC bound but can stand to transfer with assist- has had frequent falls 2/2 impulse control and not waiting for assist- has dementia and on Namenda. Son would like her to return home. Trauma team and orthopedic surgeon came to room. Dr Moon requested medical records from neurologist at [facility] - Dr Gael Khan- [phone]- and obtain MRI, if one not recently obtained, to help determine cause of frequent falls. Nurse will obtain these. Ortho team discussed plan to repair hip fracture. Son is MPOA and informed of plan if care- Needs in hospital Advanced Directives and informed about OOHDNAR- has been given to him to review. - Pertinent PMH Cardiac disease, coronary artery disease with stent placement, no oral anti- coagulation secondary to frequent falls, diabetes type 2, hyperlipidemia, hypertension, Parkinson's disease, GERD, Cyr's palsy, skin cancer, heart murmur, past AMI, hypothyroidism, incontinence, renal disease, liver disease, sleep apnea, and stomach ulcers - Social History Smoking Status: Smoker, status unknown Alcohol Use: none Drug Use History: none Living Situation: dependent child, with caregiver - Medications MAR Reviewed: Yes - Allergies Allergies/Adverse Reactions: Allergies Allergy/AdvReac Type Severity Reaction Status Date / Time No Known Allergies Allergy Verified 10/07/19 16:04 - Subjective Non verbal - ROS Non Response: due to mental status (sedated with ativan and dementia) - Objective Vital Signs: Vital Signs - Most Recent Temp Pulse Resp BP Pulse Ox 99.2 F 75 20 152/65 H 97 08/10/20 08:15 08/10/20 08:15 08/10/20 08:15 08/10/20 08:15 08/10/20 08:15 - Advance Directives Medical Power of Blood Collector: Ngoc Dunne- DIL Specific Directives: DNAR - Physical Exam Constitutional: cachectic, ill appearing HEENT: EOMI, moist MMs, sclera anicteric Respiratory: clear to auscultation bilateral, no rales, no rhonchi, unlabored breathing Cardiovascular: no rub (3/6 MIKO in aortic area) Gastrointestinal: continent Genitourinary: johnson catheter Musculoskeletal: no cyanosis, no clubbing, no edema Neurology: non-focal (Non verbal) Skin: cap refill <2 seconds (Skin), friable (Superficial bruising) Deviation from normal: Non verbal, obeys commands, eyes open to stimuli - Problem List (1) Hip fracture requiring operative repair Code(s): S72.009A - FRACTURE OF UNSP PART OF NECK OF UNSP FEMUR, INIT Current Visit: Yes Status: Acute Qualifiers: Fracture type: closed Laterality: left (2) Hip fracture, intertrochanteric Code(s): S72.143A - DISPLACED INTERTROCHANTERIC FRACTURE OF UNSP FEMUR, INIT Current Visit: Yes Status: Acute Qualifiers: Fracture type: closed Laterality: left (3) Parkinsons disease Code(s): G20 - PARKINSON'S DISEASE Current Visit: No Status: Acute (4) Encounter for palliative care Code(s): Z51.5 - ENCOUNTER FOR PALLIATIVE CARE Current Visit: Yes Status: Acute - Plan/Recommendations Plan: Met with son at bedside and discuss goals of care-he would like for her to return home after surgery Ortho in room and plans to do fixation of fracture this afternoon Trauma team in room and ordering MRI to explore cause for frequent falls Educated on out of hospital DNR and he would like to consider that, has advanced directives and medical power of deputy prosecuting attorney paperwork with him 90 minutes spent on this encounter with >50% of the time in counseling and coordination of care. Thank you for this very appropriate consult.
--- NOTE | 2020-08-10 11:18 | CON ---
DATE OF CONSULTATION: 08/10/2020 REQUESTING PHYSICIAN: Trauma Services CONSULTING PHYSICIAN: Sen Quigley MD REASON FOR CONSULT: Left intertrochanteric femur fracture. HISTORY OF PRESENT ILLNESS: An 85-year-old female with a history of Parkinson disease, transferred from [facility], where she was brought by EMS after sustaining an unwitnessed fall at home. Majority of history is obtained from son, who is also the power of assistant prosecuting attorney and states that last two months they have had a transition to a wheelchair due to increased instability. She had received 8 mg of Ativan due to a seizure sustained in the ED. Due to the patient's condition, all the medical records and history was obtained from the son. PAST MEDICAL HISTORY: Parkinson's, seizure disorder, hyperlipidemia, GERD, hypothyroidism, hypertension, and diabetes. PAST SURGICAL HISTORY: Hysterectomy. MEDICATIONS: 1. Carbidopa/levodopa. 2. Levothyroxine. 3. Omeprazole. 4. Multivitamin. 5. Coreg. 6. Memantine. 7. Vascepa. 8. Crestor. 9. Ropinirole. 10. Tricor. 11. Humalog. 12. MiraLAX. 13. Nitroglycerin. REVIEW OF SYSTEMS: Unable to complete review of systems due to patient's current condition. PHYSICAL EXAMINATION: Vitals: Temp-99.2, HR-75, RR-20, SpO2- 97% RA, BP- 152/65 GENERAL: The patient lying supine in the seizure bed, non-contracted, sedated right now on 8 mg of Ativan from the ED. MSK: Muscle wasting seen with some mild shortening. Vascular intact. Warm extremities. 3-second cap refill. There is a positive log roll, pain elicited in hip with spontaneous movement noted in the distal extremity. IMAGING STUDIES: AP and frog-leg lateral obtained showed a two-part nondisplaced left intertrochanteric femur fracture. Assessment: 1. Left 2 part non displaced intertrochanteric hip fracture PLAN: After talking with son on the phone, he seems on board to repair the fracture today. Plan to take the patient to the OR this afternoon. The patient is n.p.o. and not currently on any blood thinners. We will do a dynamic hip screw. The patient was consented via the power of assistant prosecuting attorney and all questions have been answered. Job ID: [id number] [facility]
[2020-08-10] MEDS ORDERED: Fentanyl 100 MCG/2 ML VIAL ONE (12:08)
--- NOTE | 2020-08-10 14:30 | OP ---
DATE OF PROCEDURE: 08/10/2020 OPERATION PERFORMED: Left proximal femur dynamic hip screw fixation. PREOPERATIVE DIAGNOSIS: Left intertrochanteric femur fracture. POSTOPERATIVE DIAGNOSIS: Left intertrochanteric femur fracture. COMPLICATIONS: None. ESTIMATED BLOOD LOSS: Minimal. FILAMENT SHAPER: None. IMPLANTS: Synthes 3-hole 135-degree angle dynamic hip screw. INDICATIONS: Ms. Dunne is an 85-year-old female who has fallen and fractured her left proximal femur. She has been indicated for dynamic hip screw fixation to restore anatomic alignment and promote healing and prevent complications of prolonged bedrest. Risks have been reviewed in detail. She has elected to proceed with the operation. DESCRIPTION OF PROCEDURE: Ms. Dunne was identified in the preoperative holding area. Her correct extremity was marked. She was carried to the operating room. She was positioned supine. General anesthesia was induced. A multidisciplinary time-out was performed. The left lower extremity was prepped and draped in sterile fashion. We began the procedure with a small incision over the lateral thigh. We identified the start point on intraoperative x-ray. We then dissected down through the subcutaneous tissues to the fascia. The fascia was opened. This allowed us to expose the underlying cortex of the femur. An elevator was used to clear the vastus lateralis. We then placed our 135-degree angle guide. A guide pin was placed in the centered position of the femoral head. We took x-rays confirming this. Next, we measured a length. We then over drilled our guide pin and then placed our dynamic screw. This was centered appropriately in the hip. We impacted our sideplate. We then placed 3 distal screws in the sideplate. We took x-ray images, confirming position. There were no complications. We proceeded to irrigate and close our wounds in layers. A sterile dressing was applied. The patient was taken to the recovery room in good condition. Job ID: [id number]
--- NOTE | 2020-08-10 15:20 | RAD ---
LEFT HIP: 08/10/20 Two fluoroscopic images from the OR presented. INDICATIONS: Open reduction and internal fixation left hip. FINDINGS/IMPRESSION: The images demonstrate screw and plate transfixing the left hip. POS: AGW
[2020-08-10] MEDS: Icosapent Ethyl 1 GM CAPSULE PO SCH (17:16)
[2020-08-10] MEDS: Rosuvastatin 5 MG TAB PO SCH (20:18)
[2020-08-10] MEDS: Fenofibrate Nanocrystallized 145 MG TAB PO SCH (20:19)
[2020-08-10] MEDS ORDERED: CEFAZOLIN 2 GM in Premix Bag 1 BAG IVPB SCH (21:00)
[2020-08-10] MEDS ORDERED: FLU VACC QS2020-21(65YR UP)/PF 240 MCG/0.7 ML SYRINGE IM ONE (21:00)
[2020-08-10] MEDS: rOPINIRole HCl 1 MG TAB PO SCH (23:08)
[2020-08-10] MEDS: Carvedilol 3.125 MG TAB PO SCH (23:08)
[2020-08-11] MEDS: Acetaminophen 325 MG TAB PO SCH ×4 (05:41→21:58)
[2020-08-11] MEDS: Levothyroxine Sodium 75 MCG TAB PO SCH (05:42)
[2020-08-11 06:05] LABS: Magnesium 1.8 mg/dL (1.6-2.6); Phosphorus 2.4 mg/dL (2.3-4.7)
[2020-08-11] MEDS: Carbidopa/Levodopa 25-100 mg Tablet PO SCH ×4 (06:29→15:47)
[2020-08-11] MEDS: Icosapent Ethyl 1 GM CAPSULE PO SCH ×2 (08:00→17:39)
[2020-08-11 08:54] LABS: Chloride 105 mmol/L (98-107); Potassium 4.3 mmol/L (3.5-5.1); Sodium 139 mmol/L (136-145)
[2020-08-11 08:58] LABS: Anion Gap 13 mmol/L (10-20); BUN (Urea Nitrogen) 21 mg/dL (9.8-20.1); Calc. Creatinine Clearance 28 mL/min (70-130); Calcium 8.7 mg/dL (7.8-10.44); Carbon Dioxide 25 mmol/L (23-31); Glucose 164 mg/dL (83-110)
[2020-08-11] MEDS: Famotidine 20 MG TAB PO SCH (09:00)
[2020-08-11] MEDS: Carvedilol 3.125 MG TAB PO SCH ×3 (09:15→21:56)
--- NOTE | 2020-08-11 11:40 | PRG ---
DATE OF SERVICE: 08/11/2020 SUBJECTIVE: An 85-year-old female, hospital day 1, status post ORIF of the hip fracture. Has had some problem with confusion. Still somewhat confused, but does state that she is in pain. She was given quite a bit of Ativan yesterday. Tolerated the surgery well. She was seen on morning rounds with Dr. Tushar Moon. She is hemodynamically stable. No acute events overnight. OBJECTIVE: VITAL SIGNS: Temperature is 98.2, blood pressure is 155/73, heart rate is 85, breathing is 16 times a minute, and 95% on room air. GENERAL: An 85-year-old female, sitting up in some pain. Nontoxic appearing. HEENT: Normocephalic and atraumatic. RESPIRATORY: Rise and fall. No respiratory distress. CARDIOVASCULAR: Strong pulses. ABDOMEN: Soft. MUSCULOSKELETAL: She has surgical incision with a dry dressing noted. She has sensation and warm distal extremities. NEURO: GCS is 15. SKIN: Warm and dry. LABORATORY DATA: From today; sodium is 139, potassium is 4.3, , BUN is 21, creatinine is 1.04, glucose is 164, phos is 2.4, and mag is 1.8. ASSESSMENT: 1. Left intertrochanteric femur fracture status post open reduction and internal fixation. 2. Scalp laceration, status post repair. 3. Unwitnessed fall, possible seizures. 4. Altered mental status that is improving with a negative head CT. 5. Acute traumatic pain. PLAN: 1. Orthopedics is following, appreciate recommendation. 2. Try to withhold parenteral analgesia. We will continue with oral analgesia. 3. Continue with Tylenol, ibuprofen, and tramadol as needed. 4. Continue with all other supportive care. 5. We will repeat labs in the morning. 6. We will work with PT/OT. 7. Rehab screen has been placed. However, the patient is wanting to go home. 8. We will stop her ceftriaxone given her urine culture has returned as negative so far. No further symptoms. 9. the patient at the bedside, coordinating with bedside RN. Job ID: [id number]
[2020-08-11] MEDS: Insulin Regular 300 UNITS/3 ML VIAL SC PRN (13:59)
--- NOTE | 2020-08-11 20:45 | PQF ---
CLINICAL DOCUMENTATION CLARIFICATION FORM: Dear Dave Hinds PA-C Date: 08/11/2020 Please exercise your independent, professional judgment in responding to the clarification form. Clinical indicators are provided on the bottom of this form for your review. Please check appropriate box(es): [ x] Protein Calorie Malnutrition: [ x ] Mild [ ] Moderate [ ] Severe [ ] Other Malnutrition (please specify) [ ] Underweight without malnutrition [ ] Cachexia [ ] Other diagnosis [ ] Unable to determine In addition, please specify: Present on Admission (POA): [ x ] Yes [ ] No [ ] Unable to determine For continuity of documentation, please document condition throughout progress notes and discharge summary. Thank You. To be completed by CDI/Coding staff for physician review: CLINICAL INDICATORS - SIGNS / SYMPTOMS / LABS / RESULTS AND LOCATION IN MR *Community Organizer Assessment 08/10: BMI 19.8 Nutrition diagnosis: Malnutrition related to dementia As Evidenced By: mild temporalis muscle wasting, moderate pectoralis muscle wasting, moderate orbital and buccal fat pad wasting, 9.5% weight loss x 2 months suggestive of moderate-severe malnutrition likely in the context of chronic illness. *08/10 Palliative Care Consult (Alex) PE: cachectic, ill appearing *08/10 Consult (Amy) PE: MSK: Muscle wasting seen with some mild shortening. RISK FACTORS / RESULTS AND LOCATION IN MR *H&P 08/10 (Linda) HPI: dementia *08/11 pn (Guzman) Assessment: Left intertrochanteric femur fracture s/p ORIF. TREATMENT / RESULTS AND LOCATION IN MR Community Organizer Assessment for MST 2 (unsure weight loss) Intervention: When diet is advanced, pt would likely benefit from Glucerna BID. Moderate Malnutrition (in acute illness) Energy Intake: <75% of estimated energy requirement for > 7 days Weight Loss: 1-2%/1 week; 5%/ 1 month; 7.5%/3 months Other: mild body fat loss; mild muscle mass loss; mild fluid accumulation; Severe Malnutrition (in acute illness) Energy Intake: = 50% of estimated energy requirement for = 5 days Weight Loss: >2%/1 week; >5%/1 month; >7.5%/3 months Other: moderate body fat loss; moderate muscle mass loss; moderate- severe fluid accumulation; measurably reduced fryer line helper strength Moderate Malnutrition (in chronic illness) Energy Intake: <75% of estimated energy requirement for =1 month Weight Loss: 5%/1 month; 7.5%/3 months; 10%/6 months; 20%/1 year Other: mild body fat loss; mild muscle mass loss; mild fluid accumulation Severe Malnutrition (in chronic illness) Energy Intake: =75% of estimated energy requirement for =1 month Weight Loss: >5%/1 month; >7.5%/3 months; >10%/6 months; >20%/1 year Other: severe body fat loss; severe muscle mass loss; severe fluid accumulation; measurably reduced fryer line helper strength Thank you, Damaris Solorzano RN, BSN [email or web address] This is a permanent part of the Medical Record [facility]
[2020-08-11] MEDS ORDERED: Morphine 2 MG/ML VIAL SLOW IVP PRN (21:24)
[2020-08-11] MEDS ORDERED: Labetalol HCl 100 MG/20 ML VIAL SLOW IVP PRN (21:25)
[2020-08-11] MEDS: Rosuvastatin 5 MG TAB PO SCH (21:57)
[2020-08-11] MEDS: Fenofibrate Nanocrystallized 145 MG TAB PO SCH (21:57)
[2020-08-11] MEDS: rOPINIRole HCl 1 MG TAB PO SCH (21:57)
[2020-08-11] MEDS: Ketorolac Tromethamine 30 MG/ML VIAL IVP SCH (22:06)
[2020-08-12] MEDS: Acetaminophen 325 MG TAB PO SCH ×3 (05:27→17:14)
[2020-08-12] MEDS: Levothyroxine Sodium 75 MCG TAB PO SCH (05:41)
[2020-08-12] MEDS: Ketorolac Tromethamine 30 MG/ML VIAL IVP SCH ×3 (06:18→21:02)
[2020-08-12 06:44] LABS: #Basophils 0.1 thou/uL (0.0-0.2); #Eosinphils 0.2 thou/uL (0.0-0.7); #Lymphocytes 2.8 thou/uL (1.20-3.40); #Monocytes 1.3 thou/uL (0.11-0.59); #Neutrophils 6.6 thou/uL (1.40-6.50); %Basophils 0.7 % (0.0-1.0); %Eosinophils 1.4 % (0.0-10.0); %Lymphocytes 25.8 % (21.0-51.0); %Monocytes 11.8 % (0.0-10.0); %Neutrophils 60.2 % (42.0-75.0); Hemoglobin 9.7 g/dL (12.0-16.0); Mean Corpuscular HGB CONC 33.2 g/dL (32.0-36.0); Mean Corpuscular Volume 90.5 fL (78.0-98.0); Mean Platelet Volume 8.6 fL (7.4-10.4); Platelet Count 171 thou/uL (130-400); RBC Distribution Width 12.2 % (11.5-14.5); Red Blood Cell (RBC) Count 3.23 mill/uL (4.20-5.40); White Blood Cell (WBC) Count 10.9 thou/uL (4.8-10.8)
[2020-08-12 07:06] LABS: Anion Gap 16 mmol/L (10-20); BUN (Urea Nitrogen) 26 mg/dL (9.8-20.1); Calc. Creatinine Clearance 30 mL/min (70-130); Calcium 9.1 mg/dL (7.8-10.44); Carbon Dioxide 21 mmol/L (23-31); Chloride 105 mmol/L (98-107); Glucose 156 mg/dL (83-110); Magnesium 1.8 mg/dL (1.6-2.6); Phosphorus 1.6 mg/dL (2.3-4.7); Potassium 4.1 mmol/L (3.5-5.1); Sodium 138 mmol/L (136-145)
[2020-08-12] MEDS ORDERED: Magnesium Sulfate 2 GM in Sodium Chloride 0.9% 100 ML IVPB SCH (09:15)
[2020-08-12] MEDS: Carbidopa/Levodopa 25-100 mg Tablet PO SCH ×4 (09:57→21:01)
[2020-08-12] MEDS: Famotidine 20 MG TAB PO SCH (09:58)
[2020-08-12] MEDS: Carvedilol 3.125 MG TAB PO SCH ×2 (09:58→21:02)
[2020-08-12] MEDS: Icosapent Ethyl 1 GM CAPSULE PO SCH ×2 (09:58→17:13)
[2020-08-12] MEDS: Metoprolol Tartrate 5 MG/5 ML VIAL IVP SCH ×2 (10:46→17:03)
--- NOTE | 2020-08-12 19:33 | RAD ---
Abdomen one view HISTORY: Nasogastric tube placement. FINDINGS: Nasogastric tube is coiled over the gastric fundus. Visualized bowel gas pattern nonspecific. The lateral left abdomen and lower abdomen/pelvis are exclu ded from the image. IMPRESSION : Nasogastric tube is in good radiographic position.
[2020-08-12] MEDS: rOPINIRole HCl 1 MG TAB PO SCH (21:01)
[2020-08-12] MEDS: Fenofibrate Nanocrystallized 145 MG TAB PO SCH (21:02)
[2020-08-12] MEDS: Rosuvastatin 5 MG TAB PO SCH (21:02)
[2020-08-13] MEDS: Acetaminophen 325 MG TAB PO SCH ×4 (00:26→18:40)
--- NOTE | 2020-08-13 04:56 | PRG ---
DATE OF SERVICE: 08/12/2020 SUBJECTIVE: Ms. Dunne is an 85-year-old female, still somewhat lethargic, is not moving much. She is n.p.o. since yesterday at Speech recommendation. She was not able to tolerate. Her son is at the bedside. I had a long discussion today versus NG tube placement for medication administration as patient was hypertensive overnight or comfort measures to DNAR. I did talk to rest of the family, they are okay with NG tube for meds, but they do not want to pursue like tube feeds or any aggressive measures at the end of her life. Otherwise, the patient remains stable; however, she is just not returning to her mental baseline, could be parkinsonism, dementia versus other neurologic insult. OBJECTIVE: VITAL SIGNS: Temperature is 98.2, blood pressure 155/62, heart rate is 64, breathing 18 times per minute, 97% on room air. GENERAL: This is an 85-year-old female, chronically ill, sitting up, altered mental status. HEENT: Normocephalic, atraumatic. RESPIRATORY: Equal rise and fall. No marychuy distress. Does have large tidal volumes at times. PERIPHERAL VASCULAR: Strong pulses. ABDOMEN: Soft. MUSCULOSKELETAL: Surgical incision is dry. NEURO: She is much more confused today. GCS is 10, for confusion, inappropriate words. She withdraws from pain. Opens her eyes to painful stimuli. Do not see any other gross deficits appreciated, just generalized malaise. PSYCH: Withdrawn. LABORATORY DATA: Today, white blood cell count 10.9, platelets 171, hemoglobin and hematocrit of 9.7 and 29.2 respectively. Sodium is 138, potassium 4.1, chloride is 105, CO2 is 21, BUN is 26, creatinine 0.97, glucose is 156, phos is 1.6, and mag of 1.8. ASSESSMENT AND PLAN: 1. Left intertrochanteric femur fracture, status post open reduction and internal fixation. 2. Scalp laceration, status post repair. 3. Unwitnessed fall, possible seizures. 4. Altered mental status, that was improving, seems to be somewhat worse. She did have initial negative head CT, could be parkinsonian, off medicines. 5. Acute traumatic pain. 6. Hypomagnesemia. 7. Hypophosphatemia. PLAN: 1. Orthopedics is following. Appreciate recommendations. 2. We will hold parenteral analgesia. 3. We will place NG tube for enteral medication administration, hopefully it will control blood pressure. 4. Continue Tylenol and ibuprofen as needed if the patient does wake up. 5. We will consider CT head for further evaluation of neurologic events. However, family is not wanting aggressive measures at this time. 6. Can repeat labs in the morning. 7. We will do electrolyte replacement as needed. 8. Continue DNR. 9. PT/OT have been ordered. Rehab screen is pending, however, unsure patient's mental baseline. 10. Discussed again at length with the patient's son at the bedside, coordinating care with the bedside RN as well as seen with Orthopedics today. Job ID: [id number]
[2020-08-13] MEDS: Levothyroxine Sodium 75 MCG TAB PO SCH (04:58)
[2020-08-13] MEDS: Ketorolac Tromethamine 30 MG/ML VIAL IVP SCH ×2 (05:31→12:17)
[2020-08-13] MEDS: Insulin Regular 300 UNITS/3 ML VIAL SC PRN ×2 (05:54→18:59)
[2020-08-13] MEDS: Icosapent Ethyl 1 GM CAPSULE PO SCH ×2 (12:04→18:40)
[2020-08-13] MEDS: Carbidopa/Levodopa 25-100 mg Tablet PO SCH ×4 (12:04→18:39)
[2020-08-13] MEDS: Famotidine 20 MG TAB PO SCH ×2 (12:04→13:38)
[2020-08-13] MEDS: Carvedilol 3.125 MG TAB PO SCH ×3 (12:04→21:57)
--- NOTE | 2020-08-13 14:11 | PRG ---
DATE OF SERVICE: 08/13/2020 SUBJECTIVE: Ms. Dunne is an 85-year-old female, hospital day #3, postop day #2, status post ORIF of hip fracture, traumatic brain injury, history of Parkinson. She has been somewhat slow to wake up and respond with waxing and waning mental status. Over the course of hospitalization, she remains to be slightly hypertensive and she did initially fail her swallow. However, today, she is much more awake, alert, and was actually able to get her to swallow some water with good clearance. We are going to try some oral medicines now, so we can suspend her IV medications. She pulled her NG tube out that was placed yesterday for the same. There are no other acute events overnight. Son is at the bedside. Of note, no other acute events aside from agitation. She is noted to have 750 mL in her bladder and this was on in and out scan. She has not voided since then, so we can do a bladder scan now, quite possibly after place a Nelson. OBJECTIVE: VITAL SIGNS: Temperature is 97.6, blood pressure is 177/61, heart rate is 76, respiratory rate 16, and 100% on room air. GENERAL: This is an 85-year-old female, sitting up, in no acute distress, alert and oriented. HEENT: She does have some trauma about the head. She has a primary closure wound on the left catholic. Her trachea is midline. RESPIRATORY: Equal rise and fall. Bilateral breath sounds clear. No respiratory distress. CARDIOVASCULAR: Regular rate. Strong pulses. ABDOMEN: Soft, nontender. Pelvis stable. MUSCULOSKELETAL: She move her extremities. NEURO: GCS 15. PSYCH: Normal mood and affect. DIAGNOSTIC CRITERIA AND LABORATORY DATA: There is nothing besides blood sugar to review today. ASSESSMENT AND PLAN: 1. Left intertrochanteric femur fracture, status post open reduction and internal fixation. 2. Scalp laceration, status post repair. 3. Unwitnessed fall, possible seizures. 4. Altered mental status, seems to be improving. 5. Acute traumatic pain, nearly resolving. 6. Hypomagnesemia and hypophosphatemia, improving, on replacement. PLAN: 1. Orthopedics following. 2. Mental status has improved. 3. We will hold sedating medicines. 4. Hope to start oral medicines. 5. Hope that we are able to control her blood pressure. 6. Updated the son at the bedside, answered all questions. 7. Continue all other supportive care. 8. PT and OT have been ordered. Rehab screen ensuing days. 9. Again, bladder scan and possibly place a Nelson catheter this evening. Job ID: [id number]
[2020-08-13] MEDS: Fenofibrate Nanocrystallized 145 MG TAB PO SCH (19:38)
[2020-08-13] MEDS: Rosuvastatin 5 MG TAB PO SCH (19:38)
[2020-08-13] MEDS: rOPINIRole HCl 1 MG TAB PO SCH (19:39)
[2020-08-13] MEDS: Ibuprofen 600 MG TAB PO SCH (21:57)
[2020-08-13] MEDS: Melatonin 3 MG TAB PO PRN (21:58)
[2020-08-13] MEDS ORDERED: Ibuprofen 100 MG/5 ML UDCUP PO SCH (22:00)
[2020-08-14] MEDS: Acetaminophen 325 MG TAB PO SCH ×5 (03:06→23:53)
[2020-08-14] MEDS: Carbidopa/Levodopa 25-100 mg Tablet PO SCH ×4 (06:22→18:14)
[2020-08-14] MEDS: Insulin Regular 300 UNITS/3 ML VIAL SC PRN ×3 (06:22→17:21)
[2020-08-14] MEDS: Ibuprofen 600 MG TAB PO SCH (06:23)
[2020-08-14] MEDS: Levothyroxine Sodium 75 MCG TAB PO SCH (06:23)
[2020-08-14] MEDS: Icosapent Ethyl 1 GM CAPSULE PO SCH ×2 (08:55→15:09)
[2020-08-14] MEDS: Famotidine 20 MG TAB PO SCH (09:00)
[2020-08-14] MEDS: Carvedilol 3.125 MG TAB PO SCH ×2 (09:00→19:49)
[2020-08-14] MEDS ORDERED: Ibuprofen 200 MG TAB PO PRN (09:07)
[2020-08-14] MEDS: Polyethylene Glycol 3350 17 GM Packet PO SCH (11:36)
[2020-08-14] MEDS: Aspirin 81 mg Enteric Coated Tablet PO SCH ×2 (11:37→19:49)
[2020-08-14] MEDS: Senokot S 8.6-50 MG TAB PO SCH ×2 (11:37→19:49)
--- NOTE | 2020-08-14 18:44 | PDOC.GSPN ---
Surgery Progress Note: Subj - Subjective Patient reports: no new complaints, feels better, pain well controlled, tolerati ng liquids well Narrative: 85 yo female s/p unwitnessed fall at home evening of 09 Aug 2020 with subsequent scalp lac (repaired in ED) and L intertrocanteric femur fx (ORIF Jul). Doing well per pt report. Son at bedside & also reports pt has been doing well. Speech therapy has evaluated pt & ordered thickened liquids, which pt seems to be tolerating well. Son reports pt has been more alert the last couple of days & is nearly back to her cognitive baseline (does have dementia at baseline & is reported to be A&O x2 at baseline). Nelson had been removed, but was replaced yesterday d/t urinary retention. Has not been able to do much with PT yet, per son's report. Family had been providing care for pt at home prior to this most recent fall; son states that they will be unable to provide the level of care at home that pt needs at this time & he suggests an inpt facility after discharge prior to going home. Surgery Progress Note: Obj - Vital signs Vital signs: Vital Signs - Most Recent Temp Pulse Resp BP Pulse Ox 97.5 F L 78 18 130/65 98 08/14/20 15:34 08/14/20 16:25 08/14/20 16:25 08/14/20 16:25 08/14/20 15:34 - Physical Exam General: no distress, well developed, no pain ENT: normal pinna Neck: trachea midline Respiratory: normal expansion, normal respiratory effort Genitourinary (Female): other (Nelson catheter in place, draining clear yellow urine.) Musculoskeletal: other (Lying comfortably in bed.) Psychiatric: oriented to person, speech is normal Wound: other (L forehead lac well-approximated with sutures & without s/sx infection.) Surgery Progress Note: Results - Labs Result Diagrams: 08/12/20 06:10 08/12/20 06:10 Lab results: Laboratory Results - last 12 hr 08/14/20 08/14/20 11:42 15:37 POC Glucose 229 H 216 H Surgery Progress Note: A/P - Problem (1) Hip fracture, intertrochanteric Current Visit: Yes Code(s): S72.143A - DISPLACED INTERTROCHANTERIC FRACTURE OF UNSP FEMUR, INIT Status: Acute Qualifiers: Fracture type: closed Laterality: left (2) Hip fracture requiring operative repair Current Visit: Yes Code(s): S72.009A - FRACTURE OF UNSP PART OF NECK OF UNSP FEMUR, INIT Status: Acute Qualifiers: Fracture type: closed Laterality: left (3) Urinary retention Current Visit: Yes Code(s): R33.9 - RETENTION OF URINE, UNSPECIFIED Status: Acute (4) Status post open reduction and internal fixation (ORIF) of fracture Current Visit: Yes Code(s): Z98.890 - OTHER SPECIFIED POSTPROCEDURAL STATES; Z87.81 - PERSONAL HISTORY OF (HEALED) TRAUMATIC FRACTURE Status: Acute (5) Scalp laceration Current Visit: Yes Status: Acute - Plan Plan: Overall doing well & making progress; pain well-controlled. Will place rehab screen today & consult OT. Will add Senokot & Miralax for bowel regimen. Ibuprofen had been ordered scheduled, will change to prn. Plan to leave Nelson in place today & anticipate trial removal tomorrow. Will await case management determination regarding placement & continue to have pt work with PT/OT in the meantime with expected continued improvement. Anticipate f/u on rounds in am. Addendum - Attending - Attending Attestation Date/Time: 08/15/20 1645 I personally evaluated the patient and discussed the management with . [] I agree with the History, Examination, Assessment and Plan documented above with any addition or exceptions noted below.
[2020-08-14] MEDS: Melatonin 3 MG TAB PO PRN (19:48)
[2020-08-14] MEDS: rOPINIRole HCl 1 MG TAB PO SCH (19:49)
[2020-08-14] MEDS: Rosuvastatin 5 MG TAB PO SCH (19:49)
[2020-08-14] MEDS: Fenofibrate Nanocrystallized 145 MG TAB PO SCH (19:49)
[2020-08-15] MEDS: Carbidopa/Levodopa 25-100 mg Tablet PO SCH ×3 (05:33→14:15)
[2020-08-15] MEDS: Levothyroxine Sodium 75 MCG TAB PO SCH (05:33)
[2020-08-15] MEDS: Acetaminophen 325 MG TAB PO SCH ×3 (05:34→17:05)
[2020-08-15] MEDS: Insulin Regular 300 UNITS/3 ML VIAL SC PRN ×3 (05:38→16:41)
[2020-08-15] MEDS: Carvedilol 3.125 MG TAB PO SCH (08:03)
[2020-08-15] MEDS: Senokot S 8.6-50 MG TAB PO SCH (08:03)
[2020-08-15] MEDS: Icosapent Ethyl 1 GM CAPSULE PO SCH ×2 (08:03→16:41)
[2020-08-15] MEDS: Aspirin 81 mg Enteric Coated Tablet PO SCH (08:03)
[2020-08-15] MEDS: Polyethylene Glycol 3350 17 GM Packet PO SCH (08:03)
[2020-08-15] MEDS: Famotidine 20 MG TAB PO SCH (08:03)
[2020-08-15 10:31] LABS: Bilirubin Negative (Negative); Blood, Urine Negative (Negative); Clarity Clear (Clear); Glucose, Urine (Dipstick) 50 mg/dL (Negative); Ketone, Urine Trace mg/dL (Negative); Leukocyte 250 Leu/uL (Negative); Nitrite Negative (Negative); Protein, Urine (Dipstick) 30 mg/dL (Neg-Trace); RBC/HPF 0-3 HPF (0-3); Specific Gravity, Urine 1.021 (1.002-1.036); Squamous Epithelial 0-3 HPF (0-3); Urobilinogen Normal mg/dL (Less than 2); pH, Urine 6.5 (5.0-9.0)
[2020-08-15 10:32] LABS: Bacteria/HPF 1+ HPF (None Seen)
[2020-08-15 10:34] LABS: Urine Culture Reflex Yes Yes
[2020-08-15 16:24] VITALS: BP 107/43; TEMP 97.8
[2020-08-15] MEDS ORDERED: Cipro 250 MG TAB PO SCH (20:00)
--- NOTE | 2020-08-16 11:48 | DIS ---
DATE OF ADMISSION: 08/10/2020 DATE OF DISCHARGE: 08/15/2020 ADMISSION DIAGNOSES: Ground level fall, left intertrochanteric femur fracture, and scalp laceration. DISCHARGE DIAGNOSES: Ground level fall, left intertrochanteric femur fracture, scalp laceration, and urinary tract infection. CONSULTING PHYSICIAN: Dr. Quigley of Orthopedic Surgery. PROCEDURES: The patient went to the OR on August 10, 2020 and had a left proximal femur dynamic hip screw fixation. HOSPITAL COURSE: The patient is an 85-year-old female, presented to the emergency department after a ground level fall. She was found to have a left intertrochanteric femur fracture and was admitted to the hospital. The patient also had a scalp laceration, which was sutured. There was a concern for possible seizure-like activity, however, this was eventually ruled out. Dr. Quigley took the patient to the OR on the same day of arrival and the patient received a left proximal femur dynamic hip screw fixation to address her left intertrochanteric femur fracture. Postoperatively, she will work with Physical and Occupational therapy. She did pull out her Nelson catheter and was having difficulty voiding. UA was completed, which demonstrated the patient had urinary tract infection on the day of discharge, she was started on Cipro for a total of 7 days, it was catheter associated. UA and culture were sent on the day of discharge. DISCHARGE DISPOSITION: detention facility at [facility]. DISCHARGE CONDITION: Satisfactory. PHYSICAL EXAMINATION: VITAL SIGNS: Temperature 97.6, pulse rate 66, respirations are 16, oxygen saturation 93% on room air, and blood pressure 156/53. GENERAL: A well-appearing elderly female, sitting up in bed with no signs of acute distress. PULMONARY: Equal chest rise and fall. No signs of acute respiratory distress. NEUROLOGIC: GCS is 14, minus 1 for verbal, this is her baseline. DISCHARGE INSTRUCTIONS: The patient was discharged to a care home facility. Activity as tolerated. Weightbearing as tolerated in all extremities. She will have a diabetic diet, chopped food with extra gravy and sauce. She will have nectar thick liquids. She will have Physical and Occupational therapy as well as incentive spirometry and a walker. DISCHARGE MEDICATIONS: Include Tylenol 3, aspirin, Carbidopa-Levodopa, carvedilol, Cipro for a total of 7 days, Tricor, ibuprofen, Vascepa, Synthroid, Namenda, MiraLAX, ropinirole, Crestor, and Senokot S. FOLLOWUP APPOINTMENTS: The patient is to follow up in clinic with Dr. Quigley. No followup is needed with Dr. Moon in clinic. This is a summary of the patient's hospitalization. For full details, please see her medical record in its entirety. The patient was seen and examined by myself on the day of discharge. The [place] prescription monitoring program was accessed and it was deemed appropriate for the patient to be discharged on narcotic pain medication used to treat her pain while she was in the hospital. Job ID: [id number]
== END 2020-08-15 17:44 | DRG 481 ==
LOC: ERS 23:36 → 3SE 08-10 00:10 → SURG A 08-10 16:28
PROVIDERS: ADMIT Surgery; ATTEND Surgery
PROC: 0QH734Z Insertion of Internal Fixation Device into Left Upper Femur, Percutaneous Approach (ICD-10-PCS; principal; 2020-08-10)
DX: S72.142A Displaced intertrochanteric fracture of left femur, initial encounter for closed fracture (principal); N39.0 Urinary tract infection, site not specified; E44.1 Mild protein-calorie malnutrition; Z68.1 Body mass index [BMI] 19.9 or less, adult; I25.10 Atherosclerotic heart disease of native coronary artery without angina pectoris; E78.5 Hyperlipidemia, unspecified; E78.00 Pure hypercholesterolemia, unspecified; E11.9 Type 2 diabetes mellitus without complications; I10 Essential (primary) hypertension; G20 Parkinson's disease; G51.0 Bell's palsy; E03.9 Hypothyroidism, unspecified; Z51.5 Encounter for palliative care; R56.9 Unspecified convulsions; Z66 Do not resuscitate; F02.80 Dementia in other diseases classified elsewhere, unspecified severity, without behavioral disturbance, psychotic disturbance, mood disturbance, and anxiety; S01.81XA Laceration without foreign body of other part of head, initial encounter; F41.9 Anxiety disorder, unspecified; R33.9 Retention of urine, unspecified; W18.30XA Fall on same level, unspecified, initial encounter; Z20.822 Contact with and (suspected) exposure to COVID-19; E83.42 Hypomagnesemia; E83.39 Other disorders of phosphorus metabolism; K21.9 Gastro-esophageal reflux disease without esophagitis; Z85.828 Personal history of other malignant neoplasm of skin; Y93.9 Activity, unspecified; Y92.009 Unspecified place in unspecified non-institutional (private) residence as the place of occurrence of the external cause; Z86.73 Personal history of transient ischemic attack (TIA), and cerebral infarction without residual deficits; Z95.5 Presence of coronary angioplasty implant and graft; I25.2 Old myocardial infarction; Z90.710 Acquired absence of both cervix and uterus; Z90.49 Acquired absence of other specified parts of digestive tract; Z79.899 Other long term (current) drug therapy; Z79.890 Hormone replacement therapy
CPT/HCPCS: 0240U; 12013; 36415; 36416; 51702; 70450; 71045; 72125; 72170; 74018; 76000; 80048; 80053; 81001; 81003; 81015; 82550; 83605; 83690; 83735; 83880; 84100; 84484; 85025; 85610; 85730; 86850; 86900; 86901; 87040; 87086; 93005; 96365; 96375; 99284; C1713; G0390; J0690; J0696; J1100; J1815; J1885; J1953; J2060; J2405; J2704; J3010; J3475; J3490; J7050

== ENCOUNTER 2020-09-15 08:40 | Inpatient (IN) | payer MEDICARE, OTHER ==
[2020-09-15 08:58] LABS: #Eosinphils 0.2 thou/uL (0.0-0.7); #Lymphocytes 2.3 thou/uL (1.20-3.40); #Monocytes 0.6 thou/uL (0.11-0.59); %Basophils 0.6 % (0.0-1.0); %Eosinophils 3.2 % (0.0-10.0); %Lymphocytes 32.2 % (21.0-51.0); %Monocytes 8.8 % (0.0-10.0); %Neutrophils 55.3 % (42.0-75.0); Hemoglobin 8.5 g/dL (12.0-16.0); Mean Corpuscular HGB CONC 32.4 g/dL (32.0-36.0); Mean Corpuscular Hemoglobin 29.3 pg (27.0-31.0); Mean Corpuscular Volume 90.5 fL (78.0-98.0); Mean Platelet Volume 8.2 fL (7.4-10.4); Platelet Count 216 thou/uL (130-400); RBC Distribution Width 13.4 % (11.5-14.5); White Blood Cell (WBC) Count 7.2 thou/uL (4.8-10.8)
--- NOTE | 2020-09-15 09:09 | CT ---
CT BRAIN NONCONTRAST: DATE: 09/15/2020 HISTORY: 85-year-old female with altered mental status, left facial droop, and head trauma due to fall. At 9:01 AM 09/15/2020 Dr. Villalobos gave verbal report to Dr. Bernardo of the ER for this level 2 stroke study. COMPARISON: 08/09/2020 FINDINGS: There is no evidence of acute intra-axial or extra-axial hemorrhage. There is no midline shift or any other mass effect. There is no extra-axial fluid collection. There is no evidence of obstructive hydrocephalus. Calvarium is intact. There is diffuse brain parenchymal volume loss. There are low att enuation areas in the white matter. These are nonspecific, but in a patient of this age, they are probably chronic ischemic white matter changes due to microvascular atherosclerosis. There is diffuse mild ventriculomegaly on an x-ray will basis due to brain parenchymal volume loss. Again noted are the gyriform bilateral paramedian occipital cortical calcifications which are of uncertain etiology, but could represent laminar necrosis from prior bilateral CRIME SCENE EVIDENCE TECHNICIAN territory infarctions. Again noted is the severe partial opacification of bilateral frontal sinuses, and moderate partial opacification of left anterior ethmoid air cells, and mild mucosal thickening at floor of left maxillary sinus. No air-fluid levels in the sinuses. Again noted is the small to moderate-sized old infarction in the le ft cerebellar hemisphere, in the left PICA territory. Small focus of encephalomalacia and gliosis at right middle frontal gyrus. Other than the fact that the previously demonstrated moderately large left frontotemporal scalp hematoma is no longer present, there has been no interval change. IMPRESSION: 1) No acute intracranial findings. 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 3) gyriform cortical bilateral occipital lobe calcifications. Exact etiology uncertain, but one possi bility is laminar gliosis from prior bilateral posterior cerebral artery infarctions. 4) small old infarction at right middle frontal gyrus 5) involutional changes and chronic ischemic white matter changes.
--- NOTE | 2020-09-15 09:10 | CT ---
EXAM: CT cervical spine PROVIDED CLINICAL HISTORY: Trauma COMPARISON: 08/09/2020 FINDINGS: No evidence for fracture or traumatic subluxation. No prevertebral soft tissue swelling apparent. Ce rvical degenerative changes are again seen. There is partially visualized consolidation involving the right upper lobe. Carotid calcifications are seen. IMPRESSION: 1. No evidence for fracture or traumatic subluxation. 2. Partially visualized right upper lobe consolidation. Correlate for pneumonia.
[2020-09-15 09:12] LABS: INR-International Normal Ratio 1.2; PTT 27.5 sec (22.9-36.1); Prothrombin Time 15.6 sec (12.0-14.7)
[2020-09-15 09:23] LABS: ALT (SGPT) Less than 7 U/L (8-55); AST (SGOT) 10 U/L (5-34); Albumin 2.5 g/dL (3.4-4.8); Alkaline Phosphatase 77 U/L (40-110); Anion Gap 10 mmol/L (10-20); BUN (Urea Nitrogen) 19 mg/dL (9.8-20.1); Bilirubin, Total 0.3 mg/dL (0.2-1.2); CK (CPK) 23 U/L (29-168); Calc. Creatinine Clearance 0 mL/min (70-130); Carbon Dioxide 25 mmol/L (23-31); Chloride 108 mmol/L (98-107); Globulin 2.7 g/dL (2.4-3.5); Glucose 201 mg/dL (83-110); Protein, Total 5.2 g/dL (5.8-8.1); Sodium 139 mmol/L (136-145)
--- NOTE | 2020-09-15 09:29 | RAD ---
XR Hip Lt 2-3 View INDICATION: 85-year-old with left-sided hip pain COMPARISON: Prior left hip radiograph dated August 10, 2020 FINDINGS: Bones: There is been interval superior cut out of the sliding hip screw and sideplate within the femo ral head and neck. There is also lateral and anterior displacement of the intertrochanteric hip fracture when compared to the postoperative films. There is lucency surrounding the hip screw as well as the middle sideplate screw fixation suspicious for loosening. There is diffuse osteopenia. Hip joint: Mild left hip osteoarthrosis. SI joints and symphysis pubis: Radiographically normal. Intrapelvic contents: Visualized bowel gas pattern is within normal limits. Surrounding soft tissues: There are moderate vascular calcifications seen involving the visualized va sculature. IMPRESSION: 1. Intervertebral hardware loosening with superior cutout of the left hip sliding hip screw. There is also some loosening surrounding the middle sideplate screw fixation. There is displacement of the left hip intertrochanteric fracture anteriorly and laterally approximately 1.3 cm.
--- NOTE | 2020-09-15 09:36 | RAD ---
Exam: AP pelvis one view: HISTORY: Injury, altered mental status COMPARISON: 08/10/2020 left hip FINDINGS: There is marked abnormal alignment of the left femoral head and femoral neck with the femoral head po rtion of the compression screw being markedly displaced from its previous position and probably extends at least partially outside of the femoral head as well as foreshortening and abnormal positio manpreet of the intertrochanteric and subtrochanteric fracture resulting in significant abnormal change from the prior study. IMPRESSION: Refracture versus marked abnormal displacement of the previous intertrochanteric and subtrochanteric fracture with abnormal positioning of the femoral head portion of of the compression screw device with the screw almost lying outside of the femoral head. This is a significant change from prior postoperative 08/10/2020 study. Findings including need for follow-up orthopedic consultation evaluation were discussed with Dr Bernardo in the emergency room at 9:30 AM CODE CR
--- NOTE | 2020-09-15 09:40 | RAD ---
CHEST 1 VIEW: HISTORY: Altered mental status. COMPARISON: Chest radiograph 08/09/2020. FINDINGS: Lungs are hypoinflated. Even with this hypoinflation, there are scattered airspace opacities. No pn eumothorax. No significant effusion. Heart size is mildly enlarged. IMPRESSION: Lung hypoinflation with scattered airspace opacities could reflect multifocal pneumonia. This is fel t most likely given the recent CT cervical spine findings. POS: [facility]
[2020-09-15 09:41] LABS: Bilirubin Negative (Negative); Blood, Urine Negative (Negative); Clarity Clear (Clear); Glucose, Urine (Dipstick) Normal (Negative); Ketone, Urine Negative (Negative); Leukocyte Negative Leu/uL (Negative); Nitrite Negative (Negative); Protein, Urine (Dipstick) Negative (Neg-Trace); Urobilinogen Normal mg/dL (Less than 2); pH, Urine 7.5 (5.0-9.0)
[2020-09-15] MEDS ORDERED: Vancomycin 1 GM/200 ML BAG ONE ×2 (09:52→13:55)
[2020-09-15] MEDS ORDERED: Cefepime 2 GM VIAL ONE (09:52)
[2020-09-15 11:11] LABS: SARS-CoV-2 NAA Rapid Test Not Detected (NotDetected)
[2020-09-15] MEDS ORDERED: Morphine 2 MG/ML VIAL ONE ×2 (11:47→13:55)
[2020-09-15] MEDS ORDERED: Dextrose 5% in Water 1,000 ML IV PRN (12:16)
[2020-09-15] MEDS ORDERED: Morphine 2 MG/ML VIAL SLOW IVP PRN ×2 (12:16→21:09)
[2020-09-15] MEDS ORDERED: Dextrose 50% Abboject 50 ML SYRINGE SLOW IVP PRN (12:16)
[2020-09-15] MEDS ORDERED: Ondansetron PF 4 MG/2 ML Vial IVP PRN (12:16)
[2020-09-15] MEDS ORDERED: hydrALAZINE 20 MG/ML VIAL SLOW IVP PRN (12:16)
[2020-09-15] MEDS ORDERED: Ondansetron ODT 4 MG TAB PO PRN (12:16)
[2020-09-15] MEDS ORDERED: traMADol HCl 50 MG TAB PO PRN (12:20)
[2020-09-15] MEDS ORDERED: Cyclobenzaprine 10 MG TAB PO PRN (12:20)
[2020-09-15] MEDS ORDERED: Sodium Chloride 0.9% 1,000 ML IV SCH (12:30)
[2020-09-15] MEDS ORDERED: Ibuprofen 200 MG TAB PO PRN (12:41)
[2020-09-15 13:05] LABS: Magnesium 1.6 mg/dL (1.6-2.6); Phosphorus 2.8 mg/dL (2.3-4.7)
--- NOTE | 2020-09-15 13:09 | CON ---
DATE OF CONSULTATION: 09/15/2020 This is Edna Reyes PA-C dictating a report for Manjeet Wolf MD. REQUESTING PHYSICIAN: Sha Bernardo MD CONSULTING PHYSICIAN: Manjeet Wolf MD REASON FOR CONSULTATION: Left hip fracture. HISTORY OF PRESENT ILLNESS: This is an 85-year-old female, who is well known to our service. She sustained a left intertrochanteric femur fracture last month and on August 10, 2020, underwent a dynamic hip screw fixation of her left intertrochanteric femur fracture. Today, she presented to our emergency facility by way of ground EMS after it was reported at her nursing facility that she had altered mental status. She has been staying at [facility] since her discharge from the hospital. EMS noted upon her transportation that she had some right-sided facial droop. 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 She does have a history of dementia. Workup in the emergency department reveals a re-fracture around her fixation from a month ago. We were consulted for this reason. Currently at bedside, her son reports that it is unknown whether she has fallen since her discharge from the hospital. She was transitioning to mainly wheelchair ambulation before her last fall and since her hip surgery has really been transfer only and wheelchair to get around. She is mainly bedbound. She states that she does occasionally report pain to the left hip, but really was not notable until she was transferred to our ER today. PAST MEDICAL HISTORY: Significant for Parkinson's, seizure disorder, hyperlipidemia, GERD, hypothyroidism, hypertension, diabetes, dementia, left hip fracture. PAST SURGICAL HISTORY: Hysterectomy and left hip dynamic hip screw on August 10, 2020, appendectomy, cholecystectomy, and partial colon removal. FAMILY HISTORY: Reviewed and noncontributory. REVIEW OF SYSTEMS: Unobtainable secondary to the patient's dementia and altered mental status. PHYSICAL EXAMINATION: VITAL SIGNS: Current vital signs include temperature of 98.1, blood pressure of 196/78, pulse of 70, respiratory rate of 19, and O2 saturation of 99% on room air. GENERAL: The patient is awake and alert. She is pleasantly confused. She does not complain of anything at this time or localize any pain. HEENT: Head is normocephalic and atraumatic. She does have a loss of the nasolabial fold noted on the right side. NECK: Supple. Trachea midline. LUNGS: Breathing is nonlabored. EXTREMITIES: The lower extremities were evaluated. The left leg is noted to be slightly shortened. She does have a well-healed surgical wound overlying the left hip. This area is tender to palpation. She does have painful range of motion passively on the left side. Right lower extremity appears atraumatic. RADIOGRAPHIC IMAGING: Reviewed today, shows evidence of views of the left hip, which show a dynamic hip screw present. There has been change since her surgical films taken in the operating room on August 10, 2020. There is a movement of the femoral head at the fracture site and the portion of the hardware extending into the femoral head is cut out slightly and is positioned laterally in comparison with intraoperative films. Hardware is intact. It is not broken. ASSESSMENT: An 85-year-old female with recent dynamic hip screw placement for intertrochanteric left femur fracture now with altered mental status and changes to her surgical site with displacement of the intertrochanteric fracture on the left femur. PLAN: At this time, I have had a long discussion with her son at bedside. I have also talked to the ER physician, who states that she is likely being admitted for pneumonia to the Medicine Service. It is unknown whether she has fallen or not at the nursing facility. There is obvious changes on x-rays that demonstrate a likely fall. However, the patient is not really ambulating much, if at all. I think it is completely reasonable to leave this area alone given her health issues, dementia, and lack of ambulation. She appears comfortable at this time. I have discussed this with the ER physician. We will be happy to see her in the hospital if she does end up being admitted for pneumonia. At this time, no surgical intervention is anticipated. Our team will further discuss this plan of care. She will continue transfers and wheelchair immobilization. Job ID: [id number]
[2020-09-15] MEDS ORDERED: Acetaminophen 500 MG TAB ONE (13:55)
[2020-09-15] MEDS ORDERED: traMADol HCl 50 MG TAB ONE (13:55)
[2020-09-15] MEDS: traMADol HCl 50 MG TAB PO SCH ×3 (14:23→21:29)
[2020-09-15] MEDS: Acetaminophen 500 MG TAB PO SCH ×3 (14:25→21:30)
--- NOTE | 2020-09-15 17:33 | HP ---
REQUESTING PHYSICIAN: Dr. Bernardo. CONSULT: Orthopedic Surgery, Dr. Wolf. CHIEF COMPLAINT: Fall at her [facility], hip pain, and altered mental status. HISTORY: The patient was mildly hypotensive, but improved with IV fluids in the ER. The patient is currently awake, alert, oriented to person and place only. The patient refuses to have anyone examine her at this time. The patient is upset that she was COVID swabbed. The patient was recently admitted on August 10 and underwent a dynamic hip screw fixation of her left intertrochanteric femur fracture. Trauma Services were asked to admit the patient for altered mental status and changes to her surgical site with displacement of the intertrochanteric fracture on the left femur. The patient was also noted to have a right upper lobe pneumonia on CT scan. The patient mainly uses wheelchair to get around since her last hip surgery. The patient denies any cough, cold, fever, or chills. She denied any chest pain or shortness of breath. She did report to the nursing staff that she had some dizziness. The patient was treated with vancomycin 1 g, cefepime 2 g, and Levaquin 75 mg IV in the emergency room for her pneumonia. REVIEW OF SYSTEMS: A 10-point review of systems is negative unless otherwise indicated in the above HPI. PAST MEDICAL HISTORY: Parkinson's, seizure disorder, hyperlipidemia, Cyr's palsy with left facial droop, gastroesophageal reflux disease, hypothyroidism, hypertension, diabetes, dementia, and traumatic brain injury in 2019. SURGICAL HISTORY: Hysterectomy, left hip dynamic screw on August 10, appendectomy, cholecystectomy, partial colon removal, cardiac stents. FAMILY HISTORY: Not pertinent. ALLERGIES: NO KNOWN DRUG ALLERGIES. CURRENT MEDICATIONS: 1. Vitamin B12 5000 mcg daily. 2. Vitamin D3 5000 units daily. 3. MiraLAX once a day. 4. Nitrostat sublingual as needed. 5. Carbidopa/levodopa 25 mg/100 mg 4 times a day. 6. Levothyroxine 75 mcg daily. 7. Omeprazole 40 mg daily. 8. Coreg 3.125 twice a day. 9. Memantine 10 mg b.i.d. 10. Vascepa 1 g twice a day. 11. Crestor 5 mg daily. 12. Ropinirole 1 mg at bedtime. 13. TriCor 145 mg at bedtime. 14. Humalog 75/25. SOCIAL HISTORY: Lives at [facility], uses a wheelchair, mainly bedbound. OBJECTIVE: VITAL SIGNS: Temperature 98.1, pulse 69, respirations 16, SpO2 of 98% on room air, blood pressure 200/70. GENERAL: Elderly female, awake, alert, confused, refusing most of the physical exam. HEENT: Head is atraumatic, normocephalic. Pupils are equal bilateral. There is a small contusion to the left forehead. There is some left facial droop. Mucous membranes are moist. NECK: No JVD. Trachea midline. No cervical spine tenderness. RESPIRATORY: Good inspiratory and expiratory effort. Respirations are even and nonlabored. CARDIAC: Regular rate. Regular rhythm. No pedal edema. ABDOMEN: Soft, nondistended. EXTREMITIES: Moves all extremities. Tenderness to the left hip. NEUROLOGIC: GCS 14 -1 for confusion. SKIN: Warm, dry, normal color. LABORATORY DATA: WBC 7.1, RBC 2.90, hemoglobin 8.5, hematocrit 26.2, platelets 216. Sodium 139, potassium 4.0, chloride 108 BUN 19, creatinine 0.98, estimated GFR 54, glucose 201, lactate 1.2, calcium 8.5, magnesium 1.6, phosphorus 2.8. CK 23. Troponin I 0.010. Albumin 2.5. Urinalysis, negative for UTI. Coded swab negative. DIAGNOSTICS: 1. Brain CT, impression, no acute intracranial findings, old left cerebellar infarction, small old infarction at the right middle frontal gyrus, and chronic ischemic white matter changes. 2. Cervical spine CT, impression, no evidence for fracture or traumatic subluxation. Partially visualized right upper lobe consolidation. 3. Left hip x-ray, impression, intervertebral hardware loosening with superior cut-out of the left sliding hip screw. There is also some loosening surrounding the middle sideplate screw fixation. There is displacement of the left hip intertrochanteric fracture anterior and laterally, approximately 1.3 cm. 4. Pelvis x-ray, impression, displacement of previous intertrochanteric and subtrochanteric fracture with abnormal positioning of the femoral head position of the compression screw device. 5. Chest x-ray, impression, blunt hypoinflation with scattered airspace opacities could reflect multifocal pneumonia. 6. Heart size is mildly enlarged. ASSESSMENT: 1. Fall from wheelchair. 2. Displaced intertrochanteric left femur fracture with a recent dynamic screw placement. 3. Right upper lobe pneumonia. 4. Altered mental status, history of dementia. 5. History of hypertension, GERD, traumatic brain injury, Parkinson's, hypothyroidism, diabetes, dementia, and coronary artery disease. PLAN: Admit to the surgical floor. Pain control. PT/OT to evaluate and treat. We will obtain a sputum culture. We will continue oral IV antibiotics for pneumonia. The patient can likely be discharged back to [facility] tomorrow. Plan was discussed with the attending. Job ID: [id number]
[2020-09-15 18:09] VITALS: BMI 21.4
[2020-09-15] MEDS: Ferrous Sulfate 325 MG TAB PO SCH (19:25)
[2020-09-15] MEDS ORDERED: Fenofibrate Nanocrystallized 145 MG TAB PO SCH (21:00)
[2020-09-15] MEDS ORDERED: Famotidine 20 MG TAB PO SCH (21:00)
[2020-09-15] MEDS ORDERED: rOPINIRole HCl 1 MG TAB PO SCH (21:00)
[2020-09-15] MEDS ORDERED: Rosuvastatin 5 MG TAB PO SCH (21:00)
[2020-09-15] MEDS: Doxycycline 100 MG CAP PO SCH (21:31)
[2020-09-15] MEDS: Senokot S 8.6-50 MG TAB PO SCH (21:31)
[2020-09-15] MEDS: Ascorbic Acid 500 mg Chewable Tablet PO SCH (21:31)
[2020-09-15] MEDS: Carvedilol 3.125 MG TAB PO SCH (21:44)
[2020-09-15] MEDS ORDERED: Carbidopa/Levodopa 25-100 mg Tablet PO SCH (21:45)
[2020-09-16] MEDS: traMADol HCl 50 MG TAB PO SCH ×3 (02:14→12:08)
[2020-09-16] MEDS: Acetaminophen 500 MG TAB PO SCH ×4 (02:15→12:07)
[2020-09-16] MEDS ORDERED: Levothyroxine Sodium 75 MCG TAB PO SCH (06:00)
[2020-09-16 06:02] LABS: #Basophils 0.1 thou/uL (0.0-0.2); #Eosinphils 0.3 thou/uL (0.0-0.7); #Lymphocytes 2.6 thou/uL (1.20-3.40); #Monocytes 0.7 thou/uL (0.11-0.59); #Neutrophils 3.1 thou/uL (1.40-6.50); %Basophils 1.5 % (0.0-1.0); %Eosinophils 4.6 % (0.0-10.0); %Lymphocytes 38.2 % (21.0-51.0); %Monocytes 10.4 % (0.0-10.0); %Neutrophils 45.3 % (42.0-75.0); Hemoglobin 9.2 g/dL (12.0-16.0); Mean Corpuscular HGB CONC 31.6 g/dL (32.0-36.0); Mean Corpuscular Hemoglobin 28.5 pg (27.0-31.0); Mean Corpuscular Volume 90.3 fL (78.0-98.0); Mean Platelet Volume 7.9 fL (7.4-10.4); Platelet Count 250 thou/uL (130-400); RBC Distribution Width 13.6 % (11.5-14.5); Red Blood Cell (RBC) Count 3.21 mill/uL (4.20-5.40); White Blood Cell (WBC) Count 6.8 thou/uL (4.8-10.8)
[2020-09-16 06:14] LABS: Anion Gap 11 mmol/L (10-20); BUN (Urea Nitrogen) 18 mg/dL (9.8-20.1); Calc. Creatinine Clearance 33 mL/min (70-130); Calcium 8.5 mg/dL (7.8-10.44); Carbon Dioxide 24 mmol/L (23-31); Chloride 107 mmol/L (98-107); Glucose 149 mg/dL (83-110); Magnesium 1.7 mg/dL (1.6-2.6); Potassium 4.2 mmol/L (3.5-5.1); Sodium 138 mmol/L (136-145)
[2020-09-16 06:54] LABS: Phosphorus 2.7 mg/dL (2.3-4.7)
[2020-09-16] MEDS ORDERED: Magnesium 2 GM/50 ML 2 GM in Premix Bag 1 BAG IVPB SCH (09:00)
[2020-09-16] MEDS ORDERED: Polyethylene Glycol 3350 17 GM Packet PO SCH (09:00)
[2020-09-16] MEDS: Ferrous Sulfate 325 MG TAB PO SCH ×2 (09:24→16:47)
[2020-09-16] MEDS: Carbidopa/Levodopa 25-100 mg Tablet PO SCH ×3 (09:25→16:47)
[2020-09-16] MEDS: Icosapent Ethyl 1 GM CAPSULE PO SCH ×2 (09:25→16:46)
[2020-09-16] MEDS: Ascorbic Acid 500 mg Chewable Tablet PO SCH (09:25)
[2020-09-16] MEDS: Senokot S 8.6-50 MG TAB PO SCH (09:26)
[2020-09-16] MEDS: Doxycycline 100 MG CAP PO SCH (09:26)
[2020-09-16] MEDS: Carvedilol 3.125 MG TAB PO SCH (09:26)
[2020-09-16] MEDS ORDERED: Insulin Regular 300 UNITS/3 ML VIAL SC PRN ×2 (12:34)
[2020-09-16] MEDS ORDERED: Azithromycin 250 MG TAB PO SCH (13:30)
--- NOTE | 2020-09-16 15:46 | DIS ---
DATE OF ADMISSION: 09/15/2020 DATE OF DISCHARGE: 09/16/2020 ADMISSION DIAGNOSES: 1. Fall from wheelchair. 2. Status post dynamic hip screw placement for displaced intertrochanteric femur fracture on 08/10/2020. 3. Right upper lobe pneumonia. 4. History of dementia, hypertension, gastroesophageal reflux disease, traumatic brain injury, Parkinson's, hypothyroidism, diabetes, dementia, and coronary artery disease. CONSULTATIONS: Orthopedics, Dr. Wolf. PROCEDURES: None. SUMMARY: The patient is an 85-year-old woman, who was at her correction when she reportedly fell from her wheelchair. The patient is known to our services earlier this month. She was admitted for a similar event of a ground level fall, which she underwent her surgical procedure. She returned to be evaluated for this fall and was noted to have some loosening of her hardware in her hip and also suspected community-acquired pneumonia. The patient was evaluated by orthopedist and they recommended nonoperative treatment and close observation as the patient is less ambulatory than even during her previous visit due to her advanced age and multiple comorbidities to include her cognition and making it difficult to work with physical therapy. Regarding her suspected community-acquired pneumonia, the patient was given antibiotic in the emergency department and we changed them to oral azithromycin for a 5-day course. While in our facility, she did not have an oxygen requirement, and respiratory may, she stayed stable. I recommended she follow up with her primary care provider. She was of note COVID negative. The patient was discharged back to her facility at [facility]. The son was agreeable to this entire plan and was also eager to get her back to [facility] as he knows that she does best in her own environment. The patient will follow up with Dr. Quigley or Dr. Wolf in their clinic as previously planned at discharge. Job ID: [id number]
[2020-09-16 16:04] VITALS: BP 114/65; TEMP 97.4
[2020-09-17] MEDS ORDERED: Azithromycin 250 MG TAB PO SCH (09:00)
== END 2020-09-16 18:35 | DRG 559 ==
LOC: ERS 08:40 → ERHOLD 09:50 → SURG B 15:03
PROVIDERS: ADMIT Surgery; ATTEND Surgery
DX: T84.125A Displacement of internal fixation device of left femur, initial encounter (principal); J18.9 Pneumonia, unspecified organism; Z20.822 Contact with and (suspected) exposure to COVID-19; I10 Essential (primary) hypertension; K21.9 Gastro-esophageal reflux disease without esophagitis; E03.9 Hypothyroidism, unspecified; G20 Parkinson's disease; F02.80 Dementia in other diseases classified elsewhere, unspecified severity, without behavioral disturbance, psychotic disturbance, mood disturbance, and anxiety; I25.10 Atherosclerotic heart disease of native coronary artery without angina pectoris; E11.9 Type 2 diabetes mellitus without complications; W05.0XXA Fall from non-moving wheelchair, initial encounter; E78.2 Mixed hyperlipidemia; Y83.1 Surgical operation with implant of artificial internal device as the cause of abnormal reaction of the patient, or of later complication, without mention of misadventure at the time of the procedure; Z87.820 Personal history of traumatic brain injury; Z95.5 Presence of coronary angioplasty implant and graft; I25.2 Old myocardial infarction; Z85.828 Personal history of other malignant neoplasm of skin; Z90.49 Acquired absence of other specified parts of digestive tract; Z90.710 Acquired absence of both cervix and uterus; Z91.81 History of falling; Y92.129 Unspecified place in nursing home as the place of occurrence of the external cause; Z79.899 Other long term (current) drug therapy; Z79.4 Long term (current) use of insulin; Z79.890 Hormone replacement therapy
CPT/HCPCS: 0240U; 36415; 36416; 70450; 71045; 72125; 72170; 80048; 80053; 81003; 82550; 83605; 83735; 84100; 84484; 85025; 85610; 85730; 86850; 86900; 86901; 87040; 87086; 93005; J0692; J1815; J1956; J2270; J3370; J3475; J7050

== ENCOUNTER 2020-11-08 18:05 | Inpatient (IN) | payer MEDICARE, OTHER ==
[2020-11-08 18:48] LABS: #Eosinphils 0.4 thou/uL (0.0-0.7); #Lymphocytes 4.3 thou/uL (1.20-3.40); #Monocytes 1.1 thou/uL (0.11-0.59); #Neutrophils 4.4 thou/uL (1.40-6.50); %Basophils 0.3 % (0.0-1.0); %Eosinophils 4.3 % (0.0-10.0); %Monocytes 10.7 % (0.0-10.0); %Neutrophils 42.7 % (42.0-75.0); Hemoglobin 11.3 g/dL (12.0-16.0); Mean Corpuscular Hemoglobin 29.1 pg (27.0-31.0); Mean Corpuscular Volume 88.1 fL (78.0-98.0); Mean Platelet Volume 9.7 fL (7.4-10.4); Platelet Count 213 thou/uL (130-400); RBC Distribution Width 15.1 % (11.5-14.5); Red Blood Cell (RBC) Count 3.87 mill/uL (4.20-5.40); White Blood Cell (WBC) Count 10.2 thou/uL (4.8-10.8)
[2020-11-08 19:13] LABS: ALT (SGPT) Less than 7 U/L (8-55); AST (SGOT) 11 U/L (5-34); Albumin 3.1 g/dL (3.4-4.8); Alkaline Phosphatase 133 U/L (40-110); Anion Gap 13 mmol/L (10-20); BUN (Urea Nitrogen) 24 mg/dL (9.8-20.1); Bilirubin, Total 0.2 mg/dL (0.2-1.2); Calc. Creatinine Clearance 0 mL/min (70-130); Calcium 9.5 mg/dL (7.8-10.44); Carbon Dioxide 25 mmol/L (23-31); Chloride 107 mmol/L (98-107); Globulin 3.7 g/dL (2.4-3.5); Glucose 201 mg/dL (83-110); Lipase 12 U/L (8-78); Magnesium 1.8 mg/dL (1.6-2.6); Potassium 4.7 mmol/L (3.5-5.1); Protein, Total 6.8 g/dL (5.8-8.1); Sodium 140 mmol/L (136-145)
[2020-11-08 19:51] LABS: Bilirubin Negative (Negative); Blood, Urine Negative (Negative); Clarity Clear (Clear); Glucose, Urine (Dipstick) Greater than 1000 mg/dL (Negative); Ketone, Urine Negative (Negative); Leukocyte Negative Leu/uL (Negative); Nitrite Negative (Negative); Protein, Urine (Dipstick) 10 mg/dL (Neg-Trace); Specific Gravity, Urine 1.019 (1.002-1.036); Urobilinogen Normal mg/dL (Less than 2); pH, Urine 6.5 (5.0-9.0)
[2020-11-08 21:24] LABS: Acetaminophen Less than 6.0 mcg/mL (10.0-30.0); Alcohol Less than 10 mg/dL (Less than 10); Salicylate Less than 8.0 mg/dL (15.0-30.0)
[2020-11-08 22:08] LABS: Amphetamine Not Detected (NotDetected); Barbiturates Screen Not Detected (NotDetected); Benzodiazepine Screen Not Detected (NotDetected); Cocaine Metabolite Screen Not Detected (NotDetected); Medtox Control Line Valid? VALID (VALID); Medtox Reader # READER 4; Methadone Not Detected (NotDetected); Methamphetamine Not Detected (NotDetected); Opiate Screen Not Detected (NotDetected); Oxycodone Screen Not Detected (NotDetected); Phencyclidine (PCP) Not Detected (NotDetected); THC/Cannabinoid Screen Not Detected (NotDetected); Tricyclic Screen Not Detected (NotDetected)
[2020-11-08] MEDS ORDERED: Lactated Ringer's 1,000 ML IV SCH (23:45)
[2020-11-09] MEDS ORDERED: Ondansetron PF 4 MG/2 ML Vial IVP PRN (00:41)
[2020-11-09] MEDS ORDERED: Acetaminophen 325 MG TAB PO PRN (00:41)
[2020-11-09] MEDS ORDERED: Dextrose 5% in Water 1,000 ML IV PRN (00:43)
[2020-11-09] MEDS ORDERED: Dextrose 50% Abboject 50 ML SYRINGE SLOW IVP PRN (00:43)
[2020-11-09] MEDS ORDERED: HumaLOG 300 UNITS/3 ML VIAL SC PRN (00:43)
[2020-11-09] MEDS ORDERED: hydrALAZINE 20 MG/ML VIAL SLOW IVP PRN (01:07)
[2020-11-09] MEDS: Sodium Chloride 0.9% 1,000 ML IV SCH ×2 (01:47→15:01)
[2020-11-09 02:01] VITALS: BMI 17.4
[2020-11-09 05:01] LABS: #Basophils 0.1 thou/uL (0.0-0.2); #Eosinphils 0.4 thou/uL (0.0-0.7); #Lymphocytes 3.9 thou/uL (1.20-3.40); #Monocytes 0.9 thou/uL (0.11-0.59); #Neutrophils 4.3 thou/uL (1.40-6.50); %Basophils 0.9 % (0.0-1.0); %Eosinophils 4.2 % (0.0-10.0); %Lymphocytes 40.5 % (21.0-51.0); %Monocytes 9.8 % (0.0-10.0); %Neutrophils 44.7 % (42.0-75.0); Hemoglobin 11.7 g/dL (12.0-16.0); Mean Corpuscular Hemoglobin 29.1 pg (27.0-31.0); Mean Corpuscular Volume 88.2 fL (78.0-98.0); Platelet Count 205 thou/uL (130-400); RBC Distribution Width 15.1 % (11.5-14.5); Red Blood Cell (RBC) Count 4.02 mill/uL (4.20-5.40); White Blood Cell (WBC) Count 9.5 thou/uL (4.8-10.8)
[2020-11-09 05:21] LABS: Anion Gap 13 mmol/L (10-20); BUN (Urea Nitrogen) 23 mg/dL (9.8-20.1); Calc. Creatinine Clearance 33 mL/min (70-130); Calcium 9.1 mg/dL (7.8-10.44); Carbon Dioxide 24 mmol/L (23-31); Chloride 107 mmol/L (98-107); Glucose 212 mg/dL (83-110); Potassium 4.4 mmol/L (3.5-5.1); Sodium 140 mmol/L (136-145)
[2020-11-09] MEDS ORDERED: Aspirin 300 MG Suppository PR SCH (05:45)
[2020-11-09 05:48] LABS: Free T4 (Free Thyroxine) 0.76 ng/dL (0.70-1.48)
[2020-11-09] MEDS ORDERED: Levothyroxine Sodium 200 MCG VIAL IVP SCH (06:00)
[2020-11-09 07:11] LABS: Bacteria/HPF None Seen HPF (None Seen); Bilirubin Negative (Negative); Blood, Urine Negative (Negative); Clarity Clear (Clear); Glucose, Urine (Dipstick) 100 mg/dL (Negative); Ketone, Urine Negative (Negative); Leukocyte Negative Leu/uL (Negative); Nitrite Negative (Negative); Protein, Urine (Dipstick) 10 mg/dL (Neg-Trace); RBC/HPF 0-3 HPF (0-3); Specific Gravity, Urine 1.018 (1.002-1.036); Squamous Epithelial 0-3 HPF (0-3); Urobilinogen Normal mg/dL (Less than 2); WBC/HPF 0-3 HPF (0-3)
[2020-11-09] MEDS: Levothyroxine 100 MCG SDV SLOW IVP SCH (08:46)
[2020-11-09] MEDS ORDERED: Famotidine/PF 20 mg/2ml Vial SLOW IVP SCH (09:00)
[2020-11-09] MEDS ORDERED: Levothyroxine Sodium 75 MCG TAB PO SCH (09:00)
[2020-11-09 22:15] LABS: SARS-CoV-2 PCR by NAA Not Detected (NotDetected)
[2020-11-09] MEDS ORDERED: OLANZapine 10 MG VIAL IM SCH (23:15)
[2020-11-10] MEDS: Sodium Chloride 0.9% 1,000 ML IV SCH (05:09)
[2020-11-10 05:14] LABS: #Basophils 0.1 thou/uL (0.0-0.2); #Eosinphils 0.3 thou/uL (0.0-0.7); #Lymphocytes 3.9 thou/uL (1.20-3.40); #Monocytes 1.6 thou/uL (0.11-0.59); #Neutrophils 7.4 thou/uL (1.40-6.50); %Basophils 0.4 % (0.0-1.0); %Eosinophils 2.2 % (0.0-10.0); %Lymphocytes 29.4 % (21.0-51.0); Hemoglobin 11.2 g/dL (12.0-16.0); Mean Corpuscular HGB CONC 32.3 g/dL (32.0-36.0); Mean Corpuscular Hemoglobin 28.6 pg (27.0-31.0); Mean Corpuscular Volume 88.5 fL (78.0-98.0); Mean Platelet Volume 9.4 fL (7.4-10.4); Platelet Count 194 thou/uL (130-400); Red Blood Cell (RBC) Count 3.91 mill/uL (4.20-5.40); White Blood Cell (WBC) Count 13.2 thou/uL (4.8-10.8)
[2020-11-10 05:49] LABS: Anion Gap 14 mmol/L (10-20); BUN (Urea Nitrogen) 16 mg/dL (9.8-20.1); Calc. Creatinine Clearance 35 mL/min (70-130); Calcium 8.5 mg/dL (7.8-10.44); Carbon Dioxide 21 mmol/L (23-31); Chloride 108 mmol/L (98-107); Glucose 176 mg/dL (83-110); Sodium 139 mmol/L (136-145)
[2020-11-10] MEDS ORDERED: Famotidine/PF 20 mg/2ml Vial SLOW IVP SCH (09:00)
[2020-11-10] MEDS: Levothyroxine 100 MCG SDV SLOW IVP SCH (09:10)
[2020-11-10 11:32] VITALS: BP 163/66; TEMP 98.1
[2020-11-10] MEDS ORDERED: Aspirin Chewable 81 MG TAB PO SCH (12:30)
[2020-11-11] MEDS ORDERED: Aspirin Chewable 81 MG TAB PO SCH (09:00)
== END 2020-11-10 14:20 | DRG 65 ==
LOC: ERS 18:05 → 2NO 21:56 → OBSVTOIN 11-09 15:08 → 2SE 11-09 22:46
PROVIDERS: ADMIT Internal Medicine; ATTEND Internal Medicine
DX: I63.9 Cerebral infarction, unspecified (principal); E44.0 Moderate protein-calorie malnutrition; Z68.1 Body mass index [BMI] 19.9 or less, adult; G93.49 Other encephalopathy; Z66 Do not resuscitate; Z20.822 Contact with and (suspected) exposure to COVID-19; R29.810 Facial weakness; R29.736 NIHSS score 36; I25.10 Atherosclerotic heart disease of native coronary artery without angina pectoris; I10 Essential (primary) hypertension; E78.5 Hyperlipidemia, unspecified; E11.9 Type 2 diabetes mellitus without complications; E03.9 Hypothyroidism, unspecified; D64.9 Anemia, unspecified; G20 Parkinson's disease; F02.80 Dementia in other diseases classified elsewhere, unspecified severity, without behavioral disturbance, psychotic disturbance, mood disturbance, and anxiety; G47.33 Obstructive sleep apnea (adult) (pediatric); F41.9 Anxiety disorder, unspecified; K21.9 Gastro-esophageal reflux disease without esophagitis; G51.0 Bell's palsy; E78.1 Pure hyperglyceridemia; E78.00 Pure hypercholesterolemia, unspecified; R41.82 Altered mental status, unspecified; R29.6 Repeated falls; Z85.828 Personal history of other malignant neoplasm of skin; Z90.710 Acquired absence of both cervix and uterus; Z90.49 Acquired absence of other specified parts of digestive tract; Z95.5 Presence of coronary angioplasty implant and graft; Z79.82 Long term (current) use of aspirin; Z79.4 Long term (current) use of insulin; Z79.899 Other long term (current) drug therapy
CPT/HCPCS: 36415; 36416; 51701; 70450; 70551; 71045; 72170; 80048; 80053; 80306; 80307; 81001; 81003; 82140; 83690; 83735; 84439; 84443; 84481; 84484; 85025; 87086; 87635; 93005; 95712; 95819; 95957; 96374; G0378; J1815; J2358; S0028; U0003; U0005